=== PATIENT | male | born 1980 | race Caucasian/White ===

== ENCOUNTER 2024-05-30 09:41 | Observation (INO) ==
--- NOTE | 2024-05-03 14:34 | PAT Medication Instructions ---
Medication Instructions Date of Service May 03, 2024 Home Medications acetaminophen 650 mg tablet,extended release 650 mg PO Q8H PRN prn albuterol 90 mcg/actuation aerosol inhaler 90 mcg inhalation Q4H PRN prn gabapentin 300 mg tablet 300 mg PO TID hydrocodone 5 mg-acetaminophen 325 mg tablet 1 tab PO Q6H PRN prn meloxicam 15 mg tablet 15 mg PO QAM tizanidine 4 mg tablet 4 mg PO Q8H PRN prn MEDICATION INSTRUCTIONS: Continue as directed albuterol 90 mcg/actuation aerosol inhaler 90 mcg inhalation Q4H PRN prn (use if needed; BRING TO HOSPITAL) ASK your surgeon for instructions meloxicam 15 mg tablet 15 mg PO QAM Take morning of surgery With a small sip of water, OTHERWISE NOTHING TO EAT OR DRINK AFTER MIDNIGHT: acetaminophen 650 mg tablet,extended release 650 mg PO Q8H PRN prn tizanidine 4 mg tablet 4 mg PO Q8H PRN prn gabapentin 300 mg tablet 300 mg PO TID hydrocodone 5 mg-acetaminophen 325 mg tablet 1 tab PO Q6H PRN prn Take evening before surgery acetaminophen 650 mg tablet,extended release 650 mg PO Q8H PRN prn tizanidine 4 mg tablet 4 mg PO Q8H PRN prn gabapentin 300 mg tablet 300 mg PO TID hydrocodone 5 mg-acetaminophen 325 mg tablet 1 tab PO Q6H PRN prn Other Notes If you have any questions please call us at [phone] or [phone] or [phone] or [phone]
--- NOTE | 2024-05-16 11:50 | Anesthesiology Consultation ---
Date of Service May 16, 2024 Assessment & Plan (1) Encounter for pre-operative examination: Chart Review Chart Review: Acceptable Risk for Surgery (pending PCP clearance ) and Patient seen in Pre Admission Testing - Awaiting PCP clearance (either 05/19/24 or 05/22/24) Marzena Abraham PA-C- [facility] - please fax preop testing to PCP per patient request Per PAT appt on 05/16/24, no recent illness/disease exposures, illness related symptoms, or recent illness/disease positive tests. Will leave to surgeon's discretion if preop Covid testing needed Teaching & Discussion Pre-Anesthesia Teaching/Discussion Notes: Instructed NPO after midnight before surgery,except medications with 15 cc of water. Medication instructions p rovided according to the PAT guidelines. History Surgery Operation Date: 05/30/24 07:45 Proposed Procedures p L3-S1 Decompression and Fusion, Spinal Cord Monitoring - Nicola Oneal, Height/Weight Height: 5 ft 9 in Weight: 106 kg Allergies Allergy/AdvReac Type Severity Reaction Status Date / Time morphine Allergy Severe Hives Verified 05/03/24 08:30 vancomycin Allergy Severe Hives Verified 05/03/24 08:30 Medications Home Medications Medication Instructions Recorded Confirmed Last Taken acetaminophen 650 mg 650 mg PO Q8H PRN prn 05/03/24 05/03/24 Unknown tablet,extended release albuterol 90 mcg/actuation aerosol 90 mcg inhalation Q4H PRN prn 05/03/2408/20 Unknown inhaler gabapentin 300 mg tablet 300 mg PO TID 05/03/24 05/03/24 Unknown hydrocodone 5 mg-acetaminophen 325 1 tab PO Q6H PRN prn 05/03/24 05/03/24 Unknown mg tablet meloxicam 15 mg tablet 15 mg PO QAM 05/03/24 05/03/24 Unknown tizanidine 4 mg tablet 4 mg PO Q8H PRN prn 05/03/24 05/03/24 Unknown Past Medical History Medical History Asthma stable, inhaler use rare Family history of reaction to anesthesia father- extreme nausea and vomiting Low back pain Sleep apnea CPAP Exercise / Class Metabolic Activity II 4-5 Yardwork/Stairs/Walk up hill (one flight of stairs - no chest pain or SOB ) Past Surgical History Surgical History History of hand surgery (2009) left hand crushing injury, hardware placed and then removed Past Anesthesia History No Hx of Anesthesia Complications and No Family Hx of Anesthesia Complications (with exception to PONV ) History of PONV No Hx of PONV and Hx of Motion Sickness (mild) Social History Smoking Status: Never smoker Do You Dip or Chew Tobacco: No Smoking End Date: stopped using chewing tobacco Mar 2024 Hx Alcohol Use: No Hx Substance Use: No substance use type: does not use Review of Systems Patient denies chest pain, shortness of breath, dyspnea on exertion, reflux, cough, wheezing, palpitations. No hx of seizures, stroke, NH. No hx of blood clots or blood transfusions Physical Exam Vital Signs VITALS BP 132/89 P 66 TEMP 98.5 SP02 96% RESP 16 Constitutional no acute distress ENMT Mouth: no TMJ clicking Thyromental Distance: > or= 3.5 Finger Breadths (3.5) Mallampati Class: II Permanent bridge top front teeth Neck + limited neck extension (mild) and + facial hair (advised to shave/trim) Respiratory normal respiratory effort; no respiratory distress Auscultation: lungs clear to auscultation bilaterally; no wheezes Cardiovascular Rate/Rhythm: regular rate and regular rhythm Heart Sounds: no murmur Vessels: no carotid bruit Heart sounds diminished throughout Musculoskeletal Spine: no pain with cervical ROM Extremities: extremities normal to inspection Psychiatric Orientation: alert Lab Results Anesthesia Preop Results Results Anesthesia Widget: WBC 6.34 K/ul (4.8-10.8) 05/16/24 Hgb 16.0 g/dl (14.0-18.0) 05/16/24 Hct 45.9 % (42.0-52.0) 05/16/24 Plt 238 K/uL (130-400) 05/16/24 Na 137 mmol/L (136-145) 05/16/24 K 4.6 mmol/L (3.5-5.1) 05/16/24 Cl 103 mmol/L (98-107) 05/16/24 CO2 29 mmol/L (21-32) 05/16/24 BUN 22 mg/dl (6-23) 05/16/24 Creat 0.92 mg/dl (0.6-1.4) 05/16/24 Glucose Level 97 mg/dl (70-99(Fasting)) 05/16/24 PT 10.8 Seconds (9.0-12.0) 05/16/24 PTT 29 Seconds (21-31) 05/16/24 INR 1.0 (0.9-1.1) 05/16/24 Urine Color Yellow 05/16/24 Urine Appearance Clear (Clear) 05/16/24 Urine pH 5.5 (4.5-7.5) 05/16/24 Urine Specific [place] 1.031 (1.000-1.030) H 05/16/24 Urine Protein Negative (Negative) 05/16/24 Urine Glucose (UA) Negative (Negative) 05/16/24 Urine Ketones Trace (Negative) H 05/16/24 Urine Blood Negative (Negative) 05/16/24 Urine Nitrite Negative (Negative) 05/16/24 Urine Bilirubin Negative (Negative) 05/16/24 Urine Urobilinogen Negative (Negative) 05/16/24 Urine Leukocyte Esterase Negative (Negative) 05/16/24 Blood Type O Positive 05/16/24 Antibody Screen NEGATIVE 05/16/24 Testing Electrocardiogram Date: 05/16/24 Findings: + NSR @ (72bpm) Normal EKG per cardio Chest X-Ray Date: 05/16/24 Findings: + NAD Elevation of the right hemidiaphragm
[2024-05-30] MEDS: LACTATED RINGER'S 1,000 ML IV SCH (10:19)
[2024-05-30] MEDS: CeleBREX 200 MG CAP PO SCH (10:21)
[2024-05-30] MEDS: GABAPENTIN 900 MG DOSE PO SCH (10:21)
[2024-05-30] MEDS: ACETAMINOPHEN 500 MG TAB PO SCH (10:21)
[2024-05-30] MEDS: LR 60ML/HR IV SCH (10:24)
[2024-05-30] MEDS ORDERED: PROPOFOL IV EMULSION 10 MG/ML 20 ML VIAL IV ONE (10:47)
[2024-05-30] MEDS ORDERED: ONDANSETRON INJ 2 MG/ML 2 ML VIAL ONE (10:47)
[2024-05-30] MEDS ORDERED: GLYCOPYRROLATE 0.2 MG/ML VIAL ONE ×2 (10:47→14:12)
[2024-05-30] MEDS ORDERED: DEXAMETHASONE SOD INJ 4 MG/ML VIAL ONE (10:47)
[2024-05-30] MEDS ORDERED: LIDOCAINE 2% 2 ML VIAL/AMP(20MG/ML) INFIL ONE (10:47)
[2024-05-30] MEDS ORDERED: ROCURONIUM BROMIDE 10 MG/ML 5 ML VIAL IV ONE ×3 (10:47→13:25)
[2024-05-30] MEDS ORDERED: MIDAZOLAM HCL 1 MG/ML 2ML VIAL ONE (10:48)
[2024-05-30] MEDS ORDERED: fentaNYL citrate PF 100 MCG/2 ML VIAL ONE (10:48)
[2024-05-30] MEDS ORDERED: fentaNYL citrate PF 100 MCG/2 ML VIAL IV PRN (10:49)
[2024-05-30] MEDS ORDERED: HYDROmorphone INJ 1 MG/ML SYRINGE IV PRN ×2 (10:49→16:21)
[2024-05-30] MEDS ORDERED: ONDANSETRON INJ 2 MG/ML 2 ML VIAL IV PRN ×2 (10:49→16:21)
[2024-05-30] MEDS ORDERED: ATROPINE SULFATE 0.1 MG/ML 10ML SYR IV PRN (10:49)
[2024-05-30] MEDS ORDERED: HYDROmorphone INJ 2 MG/ML SYR/VIAL IV PRN (10:49)
[2024-05-30] MEDS ORDERED: ePHEDrine sulfate 50 MG/ML AMP IV PRN (10:49)
[2024-05-30] MEDS: SCOPOLAMINE 1 MG/72 HR TDSY PATCH TD ONE ×2 (11:05→17:06)
--- NOTE | 2024-05-30 11:30 | History & Physical Bridge Note ---
Date of Service May 30, 2024 History & Physical Bridge Note I have examined the patient, reviewed the History & Physical and in the interval since the performance of the History & Physical I have noted the following changes of clinical significance: no changes noted
--- NOTE | 2024-05-30 11:31 | History & Physical Report ---
Date of Service May 30, 2024 Assessment & Plan (1) Multilevel lumbosacral spondylosis with radiculopathy: Plan: L3-S1 decompression and fusion History of Present Illness Chief Complaint: Back and leg pain Primary Care Provider: Marzena Abraham This is a 43-year-old male presents with worsening back and bilateral leg pain after failing course of nonoperative care is here for surgical invention. Allergies Allergy/AdvReac Type Severity Reaction Status Date / Time morphine Allergy Severe Hives Verified 05/30/24 09:58 vancomycin Allergy Severe Hives Verified 05/30/24 09:58 Home Medications Medication Instructions Recorded Confirmed Type acetaminophen 650 mg 650 mg PO Q8H PRN prn 05/03/24 05/30/24 History tablet,extended release albuterol 90 mcg/actuation aerosol 90 mcg inhalation Q4H PRN prn 05/03/24 05/30/24 History inhaler gabapentin 300 mg tablet 300 mg PO TID 05/03/24 05/30/24 History hydrocodone 5 mg-acetaminophen 325 1 tab PO Q6H PRN prn 05/03/24 05/30/24 History mg tablet meloxicam 15 mg tablet 15 mg PO QAM 05/03/24 05/30/24 History tizanidine 4 mg tablet 4 mg PO Q8H PRN prn 05/03/24 05/30/24 History Past Med/Surg History Problem List (Updated 05/30/24 @ 11:30 by Nicola Oneal DO) Multilevel lumbosacral spondylosis with radiculopathy Encounter for pre-operative examination Medical History Asthma stable, inhaler use rare Family history of reaction to anesthesia father- extreme nausea and vomiting Low back pain Sleep apnea CPAP Surgical History History of hand surgery (2009) left hand crushing injury, hardware placed and then removed Social History Smoking Status: Never smoker Smoking End Date: stopped using chewing tobacco Mar 2024; Second Hand Exposure: No; Do You Dip or Chew Tobacco: No; Tobacco Cessation Education Requested by Patient: No Hx Alcohol Use: No Hx Substance Use: No Preferred Language: Sami Quartz Cutter Required: No Beliefs That Will Affect Care: None Current Living Situation: Spouse Other Information That Helps Us Care for You: No Feels Safe at Home: Yes Safety Concerns: Feels Safe At This Time Assistive Devices: CPAP, Denture - Upper and Glasses Assistive Devices Comment: permanent tooth partial Physical Exam Physical Exam: Patient is alert and oriented Heart regular rhythm Lungs clear Results & Data Results & Data Vital Signs (Past 12 Hours) Vital Signs Temp Pulse Resp BP Pulse Ox O2 Del Method 05/30/24 10:01 36.8 C 74 20 154/91 H 97 Room Air
[2024-05-30] MEDS: ceFAZolin 2000MG 2,000 MG/15 ML SYR IV SCH ×2 (11:58→20:55)
[2024-05-30] MEDS ORDERED: HYDROmorphone INJ 2 MG/ML SYR/VIAL ONE (12:23)
[2024-05-30] MEDS ORDERED: TRANEXAMIC ACID / 0.7% NACL 1000MG/100ML BAG IV ONE (12:28)
[2024-05-30] MEDS: TRANEXAMIC ACID 100 MG/ML 10 ML VIAL IV ONE (12:30)
[2024-05-30] MEDS: ceFAZolin 330 MG/ML 1 GM VIAL ONE (12:43)
[2024-05-30] MEDS: BUPIVACAINE/EPINEPHRINE 0.25% 1:200,000 30 ML VIAL ONE (12:43)
[2024-05-30] MEDS ORDERED: diphenhydrAMINE 50 MG/ML VIAL ONE (12:50)
[2024-05-30] MEDS: SURGICEL ABSORB HEMOSTAT 2IN X 14IN TOP ONE (13:17)
[2024-05-30] MEDS ORDERED: SUGAMMADEX SODIUM 200 MG/2 ML VIAL IV ONE (14:12)
--- OUTSIDE RECORDS SUMMARY | 2024-05-30 14:18 | External Medical Summary | Summary of Care ---
Author Name Unknown Organization [facility] Address [address] [place] [address] Phone [phone] Care Team Providers Care Customs And Border Protection Officer Name Role Phone Marzena Abraham PA-C Primary Care Provider [phone] Reason for Visit * Reason Onset Date Comments Films 03/15/2024 Encounter Details Date Type Department Care Team (Late st Contact Info) Description 03/15/2024 Telephone Radiology Film File [address] [place] [address] Support, Imaging Radiology [address] [place] [address] Films Allergies Active Allergy Reactions Criticality Noted Date Comments Morphine And Codeine 03/09/2006 Hives Pollen Extract 02/08/2024 Birch Vancomycin 03/09/2006 Hives documented as of this encounter (statuses as of 03/15/2024) Medications Ventolin HFA 108 (90 Base) MCG/ACT Inhalation Aerosol SolutionIndicati ons:Exacerbation of asthma, unspecified asthma severity, unspecified whether persistent Inhale by mouth 2 Puffs every 4 hours as needed for Wheezing. 18 g 3 2 Active Erythromycin 5 MG/GM Ophthalmic OintmentIndicati ons:[place] eye disease of left eye Instill into eye at bedtime . 3.5 g 2 Active Additional Information Patient not taking.Reported on 01/21/2022 tiZANidine HCl 2 MG Oral Capsule (Zanaflex) Take 1 Capsule by mouth 3 times a day as needed for Muscle spasms. 24 Capsule 4 Active oxyCODONE-Acetam inophen 5-325 MG Oral Tablet (Percocet) Take 1 Tablet by mouth at bedtime as needed for Pain, Severe. 4 Tablet 4 Active Additional Information Patient not taking.Reported on 02/08/2024 Neurontin 300 MG Oral Capsule Take by mouth. 4 Active HYDROcodone-Acet aminophen 5-325 MG Oral Tablet Take by mouth. 4 Active Ipratropium-Albu terol 0.5-2.5 (3) MG/3ML Inhalation Solution (Duoneb) Start: 01/24/24 12:52:00 PM EDT 3 Active Meloxicam 15 MG Oral Tablet (Mobic) Take by mouth. 3 Active tiZANidine HCl 4 MG Oral Capsule 4 Active documented as of this encounter (statuses as of 03/15/2024) Active Problems Problem Noted Date Diagnosed Date RITCHIE (obstructive sleep apnea) 12/05/2021 documented as of this encounter (statuses as of 03/15/2024) Immunizations Name Administration Dates Next Due COVID-19 mRNA, LNP-s, No Pre serve, 2-Dose Series (SocialShield) 03/19/2021,08/03/2020,07/12/2020 Pneumococcal Conjugate Vacci ne, 20-valent ([id number]) 01/21/2022 Seasonal Influenza, PF, 6 M & above, IM , (FluLaval or Fluzone) 01/21/2022,02/14/2021,01/17/2018 Seasonal Influenza, Trivalen t, (IIV3), PF, (Fluzone) 02/28/2024 TD - Tetanus/Diptheria (ADULT) 01/12/2004 TDAP, Age 7 and older, IM (Adacel) 12/18/2009 documented as of this encounter Social History Tobacco Use Types Packs/Day Years Used Date Smoking Tobacco: Never Smokeless Tobacco: Current Snuff Comments:approx 1 can/day- 1 Alcohol Use Standard Drinks/Week Comments Yes 0 (1 standard drink = 0.6 oz pur e alcohol) occasional PHQ-2 Answer Date Recorded PHQ-2 Score 0 01/30/2018 Sex and Gender Information Value Date Recorded Sex Assigned at Not on file Legal Sex Male 5:44 AM EST Gender Identity Not on file Sexual Orientation Not on file documented as of this encounter Miscellaneous Notes * Telephone Encounter - Alysia Golden OSA - 03/15/2024 3:31 PM EST 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 [place] Authorization to Release on file. Images pushed to [facility] Life Image account. documented in this encounter Plan of Treatment Upcoming Encounters Date Type Department Care Team (Late st Contact Info) Description 03/30/2024 7:30 AM EST Office Visit [facility] [address] [place] [address] Adam Kirby CRNP [address] [place] [address] Health Maintenance Due Date Last Done Comments HIV Screening 06/07/1995 Hepatitis C Screening 1998 Hepatitis B Vaccine (1 of 3 - 19+ 3-dose series) 06/07/1999 Depression Screening 07/30/2018 07/30/2017 DTap/Tdap Vaccines (2 - Td or Tdap) 12/19/2019 12/18/2009, 01/12/2004 COVID-19 Vaccine ( season) 2023 03/19/2021, 08/03/2020, 07/12/2020 Diabetes Screening 05/23/2025 05/23/2022, 0 04/20/2018, 12/26/1997 Lipid Panel 05/23/2027 05/23/2022, 03/30, 06/18/2017, Additional history exists Pneumococcal Vaccine: Pediatrics (0 to 5 Years) and At-Risk Patients (6 to 64 Years) Aged Out 01/21/2022 No longer eligible based on patient's age to complete this topic Influenza Vaccine (FLU shot) Completed 04/2023, 01/21/2022, 02/14/2021, Additional history exists HPV (Gardasil) Vaccine Aged Out No lo nger eligible based on patient's age to complete this topic MENINGOCOCCAL (MENACTRA/MENVEO) Aged Out No longer eligible based on patient's age to complete this topic documented as of this encounter Medical Devices Not on filedocumented as of this encounter Care Teams Customs And Border Protection Officer Relationship Specialty Start Date End Date Marzena Abraham PA-C [address] [facility] [place] [id number] PCP - General Physician Curing Oven Tender 02/28/24 documented as of this encounter
--- OUTSIDE RECORDS SUMMARY | 2024-05-30 14:18 | External Medical Summary | Continuity of Care Document ---
Author Name Unknown Organization [place] Address [address] [facility], [place] [address] Phone [phone] Problems Active Problems Provider Date Obstructive sleep apnea syndrome Ezekiel Cruz Onset: 01/26/2022 Mild intermittent asthma Deonna Webster PA-C On set: 03/05/2022 Lumbar radiculopathy Marzena Abraham PA-C Onset: 1 Note: Document: 01/24/24 - N eurosurgery Consultation Social History Type Date Description Comments Sex Unknown Tobacco Use Reviewed: 05/19/24 Never Smoked Cigarette s Tobacco Use Reviewed: 05/19/24 Never Smoked Cigars Tobacco Use Reviewed: 05/19/24 Never Smoked A Pipe Smoking Status Reviewed: 05/19/24 Never Smoked A Pipe Smokeless Tobacco 05/19/2024 Quit - Age 43 Smokeless Tobacco 05/19/2024 Former Smokele ss Tobacco User, Used 3 Times Daily ETOH Use Occasionally consumes alcoho l Tobacco Use Start: Unknown Patient has never smoked Allergies and adverse reactions Active Allergies Criticality Reaction | Severity Comments Date Morphine Unable to assess criticality Hives 01/26/2022 Vancomycin Unable to assess criticality Hives 01/26/2022 Medications Active Medications SIG Qnty Indications Order ing Provider Date Hydrocodone Bitartrate/Acetaminop hen5-325mg Tablets 1 by mouth every 4-6 hours as needed pain-initial treatment 18tabs M51.16 Baldemar Oh, 12/28/2023 Tizanidine HCL4mg Capsules 1 by mouth every 8 hours as needed 90caps Baldemar Oh, 12/23/2023 [id number] Capsules 1 by mouth three times a day 270caps Baldemar Oh, DO 12/23/2023 Wgeyhrmuy48zw Tablets 1 by mouth every day 90tabs M54.50 Baldemar Oh, DO 12/08/2023 NebulizerMisc with supplies - use as directed; dx j45.901 1units J45.901 CICI Santiago 11/04/2022 Ipratropium [place]/Albuterol Sulfate0.5-2.5(3)mg/3 ML Solution nebulize 1 unit every 6 hours as needed for wheezing. 90ml J45.901 Baldemar Oh, 11/04/2022 Ventolin NTU935(90Base) mcg/Act Aerosol 2 puffs by mouth every 4 hours as needed wheezing 1gm CICI Santiago History Medications Ogquqmwta12ub Tablets 1 by mouth every day for 14 days 14tabs M54.50 Oralia Obrien MD 12/08/2023 - 12/10/2023 Medications Administered in Office Medication SIG Qnty Indications Ordering Provider Date Injection Ketorolac Trometha mine Per 15 mg/.5cc (Toradol)Injection Marzena Abraham PA-C 12/10/2023 Inj, methylpred acetate 1 mgInjection Marzena Abraham PA-C Injection Methylprednisolone Acetate 20 MGInjection Marzena Abraham PA-C 05/27/2023 Immunizations CPT Code Status Date Vaccine Lot # [id number] Given 03/05/2022 Tdap (Tetanus, diphtheria & acel. pertussis) Adacel or Boostrix [id number] U-FLU Given 01/21/2022 Influenza,Unspecified 81186 Given 01/21/2022 Pneumococcal Conjugate-Pr evnar 20 [id number] 09843 Given 03/19/2021 Pfizer Sars-Cov -2 (Cov-19) vacc 30mcg/0.3ML 12Y+ EMR Doc Only U-FLU Given 02/14/2021 Influenza,Unspecified 68834 Given 08/03/2020 Pfizer Sars-Cov -2 (Cov-19) vacc 30mcg/0.3ML 12Y+ EMR Doc Only 33060 Given 07/12/2020 Pfizer Sars-Cov -2 (Cov-19) vacc 30mcg/0.3ML 12Y+ EMR Doc Only U-FLU Given 01/17/2018 Influenza,Unspecified 79371 Given 12/18/2009 Tdap (Tetanus, diphtheria & acel. pertussis) Adacel or Boostrix 09352 Given 01/12/2004 [facility] [address] Refused 03/05/2022 Moderna Sars-Co v-2 (Covid-19) Vaccine, BiValent Booster 12y+ Vital Signs Date Vital Result Comment 05/19/2024 8:37am BP Systolic 130 mmHg BP Diastolic 88 mmHg Body Temperature 98.1 F Heart Rate 68 /min Respiratory Rate 18 /min Weight 235.00 lb Weight 106.596 kg 12/28/2023 8:28am BP Systolic 118 mmHg BP Diastolic 88 mmHg Body Temperature 97.5 F Heart Rate 72 /min Respiratory Rate 20 /min Weight 218.00 lb Weight 98.885 kg Height 67.5 inches 5'7.50" BMI (Body Mass Index) 33.6 kg/m2 [place] Body Weight 148 lb Results Test Acquired Date Facility Test Result H/L Range Note Drug Monitor, Panel 1 W/Conf Urine 12/28/2023 [facility] [place] [address] Amphetamines NEGATIVE ng/mL Normal <500 medMATCH Amphetamines DNR Normal Amphetamine DNR ng/mL Normal <250 medMATCH Amphetamine DNR Normal Methamphetamine DNR ng/mL Normal <250 medMATCH Methamphetamine DNR Normal Amphetamines Comments DNR Normal Barbiturates NEGATIVE ng/mL Normal <300 medMATCH Barbiturates DNR Normal Amobarbital DNR ng/mL Normal <100 medMATCH Amobarbital DNR Normal Butalbital DNR ng/mL Normal <100 medMATCH Butalbital DNR Normal Pentobarbital DNR ng/mL Normal <100 medMATCH Pentobarbital DNR Normal Phenobarbital DNR ng/mL Normal <100 medMATCH Phenobarbital DNR Normal Secobarbital DNR ng/mL Normal <100 medMATCH Secobarbital DNR Normal Barbiturates Comments DNR Normal Benzodiazepines NEGATIVE ng/mL Normal <100 medMATCH Benzodiazepines DNR Normal Alphahydroxyalprazolam DNR ng/mL Normal <25 medMATCH aOH alprazolam DNR Normal Alphahydroxymidazolam DNR ng/mL Normal <50 medMATCH aOH midazolam DNR Normal Alphahydroxytriazolam DNR ng/mL Normal <50 medMATCH aOH triazolam DNR Normal Aminoclonazepam DNR ng/mL Normal <25 medMATCH Aminoclonazepam DNR Normal Hydroxyethylflurazepam DNR ng/mL Normal <50 medMATCH Oh,Et flurazepam DNR Normal Lorazepam DNR ng/mL Normal <50 medMATCH Lorazepam DNR Normal Nordiazepam DNR ng/mL Normal <50 medMATCH Nordiazepam DNR Normal Oxazepam DNR ng/mL Normal <50 medMATCH Oxazepam DNR Normal Temazepam DNR ng/mL Normal <50 medMATCH Temazepam DNR Normal Benzodiazepines Comments DNR Normal Cocaine Metabolite NEGATI VE ng/mL Normal <150 medMATCH Cocaine Metab DNR Normal Benzoylecgonine DNR ng/mL Normal <100 medMATCH Benzoylecgonine DNR Normal Cocaine Comments DNR Normal Marijuana Metabolite NEGA TIVE ng/mL Normal <20 medMATCH Marijuana Metab DNR Normal Marijuana Metabolite DNR ng/mL Normal < 5 medMATCH Marijuana Metab DNR Normal Marijuana Comments DNR Normal Methadone Metabolite NEGA TIVE ng/mL Normal <100 medMATCH Methadone Metab DNR Normal Eddp DNR ng/mL Normal <100 medMATCH Eddp DNR Normal Methadone DNR ng/mL Normal <100 medMATCH Methadone DNR Normal Methadone Comments DNR Normal Opiates NEGATIVE ng/mL Normal <100 medMATCH Opiates DNR Normal Codeine DNR ng/mL Normal <50 medMATCH Codeine DNR Normal Hydrocodone DNR ng/mL Normal <50 medMATCH Hydrocodone DNR Normal Hydromorphone DNR ng/mL Normal <50 medMATCH Hydromorphone DNR Normal Morphine DNR ng/mL Normal <50 medMATCH Morphine DNR Normal Norhydrocodone DNR ng/mL Normal <50 medMATCH Norhydrocodone DNR Normal Opiates Comments DNR Normal Oxycodone NEGATIVE ng/mL Normal <100 medMATCH Oxycodone DNR Normal Noroxycodone DNR ng/mL Normal <50 medMATCH Noroxycodone DNR Normal Oxycodone DNR ng/mL Normal <50 medMATCH Oxycodone DNR Normal Oxymorphone DNR ng/mL Normal <50 medMATCH Oxymorphone DNR Normal Oxycodone Comments DNR Normal Phencyclidine NEGATIVE ng/mL Normal <25 medMATCH Phencyclidine DNR Normal Phencyclidine DNR ng/mL Normal <25 medMATCH Phencyclidine DNR Normal Phencyclidine Comments DNR Normal Creatinine 74.1 mg/dL Normal > or = 20.0 Specific [place] DNR Normal > or = 1.003 pH 5.2 Normal 4.5-9.0 Oxidant NEGATIVE g /mL Normal <200 Abnormal Specim en Validity Test: DNR Normal Prescribed Drugs, Medmatch(R) 12/28/[address] [facility] [place] [address] [phone] medMATCH Summary (SEE NOTE) 1 Prescribed Drug 1 DNR Normal Prescribed Drug 2 DNR Normal Prescribed Drug 3 DNR Normal Prescribed Drug 4 DNR Normal Prescribed Drug 5 DNR Normal Prescribed Drug 6 DNR Normal Prescribed Drug 7 DNR Normal Prescribed Drug 8 DNR Normal Prescribed Drug 9 DNR Normal Prescribed Drug 10 DNR Normal Drug Monitoring Template 12/28/[address] [facility] [address] [place] [address] Notes and Comments (SEE NOTE) 2 Patient Histori job Report DNR Normal Laboratory test finding 12/28/[address] [facility] [place] [address] [phone] Enhanced PDF Report [id number] SEE IMAGE 1 Summary not applicab le 2 This drug testing is for medical treatment only. Analysis was performed as non-forensic testing and these results should be used only by healthcare providers to render diagnosis or treatment, or to monitor progress of medical conditions. medMATCH(R) enables providers to identify if drug use is consistent or inconsistent with a corresponding prescribed medication(s) list. Healthcare Providers needing Interpretation assistance, please contact us at [phone] ( ) M-F, 8am to 10pm EST Procedures Date Code Description Status 02/08/2024 97193 Manual Sea Air Land Officer 1/> Area 15 Min Each Region Completed 02/08/2024 84881 Therapy Proc, Neuromuscular Reeducation Of Movement Completed 02/08/2024 06464 Therapy Proc 1/> Area 15Min Ea Completed 02/03/2024 17246 Manual Sea Air Land Officer 1/> Area 15 Min Each Region Completed 02/03/2024 25959 Therapy Proc 1/> Area 15Min Ea Completed 02/03/2024 98231 Electrical Stimulation Unatt ended Completed 02/03/2024 65590 Hot/Cold Pack Completed 02/01/2024 20621 Re-Eval Of PT Es tablished Plan Of Care 20Mins Face To Face PT/Fam Completed 02/01/2024 25918 Therapy Proc 1/> Area 15Min Ea Completed 12/23/2023 65145 Physical Therapy Evaluation Low Complexity Completed 12/23/2023 40243 Therapy Proc 1/> Area 15Min Ea Completed 12/10/2023 J1885 Injection Ketorolac Trometha mine Per 15 mg/.5cc (Toradol) Completed 12/10/2023 J1010 Inj, methylpred acetate 1 mg Completed 12/10/2023 90070 Inj Subcutaneous Or Intramus cular Completed Medical Devices Description No Information Available Encounters Type Date Location Provider Dx Diagnosis Office Visit 05/19/2024 8:30a Hiro Abraham PA-C M54.16 Radiculopathy , lumbar region Z01.818 Encounter for other preprocedural examination Office Visit 12/28/2023 8:30a Hiro Fair PA-C M51.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, lumbar region Office Visit 12/10/2023 1:30p Hiro Fair PA-C M51.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, lumbar region Office Visit 12/08/2023 1:00p Hiro john MD M54.50 Low back pain, unspecified Assessments Date Code Description Provider 05/19/2024 M54.16 Radiculopathy, lumbar region Marzena Abraham PA-C 05/19/2024 Z01.818 Encounter for other preproce dural examination Marzena Abraham PA-C 02/08/2024 M54.16 Radiculopathy, lumbar region Oren Pinedosen, DPT 02/08/2024 M54.50 Low back pain, unspecified E van Mara PinedoYuri, DPT 02/08/2024 M79.605 Pain in left leg Oren Pinedos en, DPT 02/08/2024 M79.604 Pain in right leg Oren Pinedo sen, DPT 02/03/2024 M54.16 Radiculopathy, lumbar region Oren Pinedosen, DPT 02/03/2024 M54.50 Low back pain, unspecified E van Mara PinedoYuri, DPT 02/03/2024 M79.605 Pain in left leg Oren Pinedos en, DPT 02/03/2024 M79.604 Pain in right leg Oren Pinedo sen, DPT 02/01/2024 M54.16 Radiculopathy, lumbar region Oren Pinedosen, DPT 02/01/2024 M54.50 Low back pain, unspecified E van Mara PinedoYuri, DPT 02/01/2024 M79.605 Pain in left leg Oren Pinedos en, DPT 02/01/2024 M79.604 Pain in right leg Oren Pinedo sen, DPT 12/28/2023 M51.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 d isc disorders with radiculopathy, lumbar region Marzena Abraham PA-C 12/23/2023 M54.16 Radiculopathy, lumbar region Oren Pinedosen, DPT 12/23/2023 M54.50 Low back pain, unspecified E van Mara Yuri, DPT 12/23/2023 M79.605 Pain in left leg Oren Pinedos en, DPT 12/23/2023 M79.604 Pain in right leg Oren Pinedo sen, DPT 12/10/2023 M51.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 d isc disorders with radiculopathy, lumbar region Marzena Abraham PA-C 12/08/2023 M54.50 Low back pain, unspecified M ramón Young MD Plan of Treatment 05/19/2024 - Marzena Abraham PA-C* M54.16 Radiculopathy, lumbar region * Z01.818 Encounter for other preprocedural examination* Comments:* Patient cleared for proposed surgical procedure. * All* Follow up:* Do not take meloxicam 1 week prior to surgery as discussed Functional Status Description No Information Available Mental Status Description No Information Available Referrals Refer to Dr Reason for Referral Status Appt Ethan Foster [facility]/Neurosurgery He has areas with moderate to severe narrowing around the spinal canal. I would suggest if he is having pain that he see neurosurgery as next step. Closed 01/24/2024 DR. Jack Antonio [address] [place] [address] [phone]
--- OUTSIDE RECORDS SUMMARY | 2024-05-30 14:18 | External Medical Summary | Continuity of Care Document ---
Author Name Unknown Organization [place] Address [address] [facility], [place] [address] Phone [phone] Problems Active Problems Provider Date Obstructive sleep [...] hours as needed 90caps Baldemar Oh, 12/23/2023 Yhuyahtky536ic Capsules 1 by mouth three times a day 270caps Baldemar Oh, DO 12/23/2023 Iigsozgeo04ce Tablets 1 by mouth every day 90tabs M54.50 Baldemar Oh, DO 12/08/2023 NebulizerMisc with supplies - use as directed; dx j45.901 1units J45.901 CICI Santiago 11/04/2022 Ipratropium [place]/Albuterol Sulfate0.5-2.5(3)mg/3 ML Solution nebulize 1 unit every 6 hours as needed for wheezing. 90ml J45.901 Baldemar Oh, 11/04/2022 Ventolin UON023(90Base) mcg/Act Aerosol 2 puffs by mouth every 4 hours as needed wheezing 1gm CICI Santiago History Medications Idntszzax58tn Tablets 1 by mouth every day for [...] CPT Code Status Date Vaccine Lot # [id number] Given 03/05/2022 Tdap (Tetanus, diphtheria & acel. pertussis) Adacel or Boostrix [id number] U-FLU Given 01/21/2022 Influenza,Unspecified 08689 Given 01/21/2022 Pneumococcal Conjugate-Pr evnar 20 [id number] 78417 Given 03/19/2021 Pfizer Sars-Cov -2 (Cov-19) vacc 30mcg/0.3ML 12Y+ EMR Doc Only U-FLU Given 02/14/2021 Influenza,Unspecified 48594 Given 08/03/2020 Pfizer Sars-Cov -2 (Cov-19) vacc 30mcg/0.3ML 12Y+ EMR Doc Only 02333 Given 07/12/2020 Pfizer Sars-Cov -2 (Cov-19) vacc 30mcg/0.3ML 12Y+ EMR Doc Only U-FLU Given 01/17/2018 Influenza,Unspecified 75842 Given 12/18/2009 Tdap (Tetanus, diphtheria & acel. pertussis) Adacel or Boostrix 97697 Given 01/12/2004 [facility]ria[facility] [address] Refused 03/05/2022 Moderna Sars-Co v-2 (Covid-19) Vaccine, [...] 5'7.50" BMI (Body Mass Index) 33.6 kg/m2 [place] Body Weight 148 lb Results Test Acquired Date Facility Test Result H/L Range Note Drug Monitor, Panel 1 W/Conf Urine 12/28/2023 [facility] [place] [address] Amphetamines NEGATIVE ng/mL Normal <500 medMATCH Amphetamines [...] mg/dL Normal > or = 20.0 Specific [place] DNR Normal > or = 1.003 pH 5.2 Normal 4.5-9.0 Oxidant NEGATIVE g /mL Normal <200 Abnormal Specim en Validity Test: DNR Normal Prescribed Drugs, Medmatch(R) 12/28/2023 [facility] [facility] [place] [address] medMATCH Summary (SEE NOTE) 1 Prescribed Drug 1 DNR Normal Prescribed Drug 2 DNR Normal Prescribed Drug 3 DNR Normal Prescribed Drug 4 DNR Normal Prescribed Drug 5 DNR Normal Prescribed Drug 6 DNR Normal Prescribed Drug 7 DNR Normal Prescribed Drug 8 DNR Normal Prescribed Drug 9 DNR Normal Prescribed Drug 10 DNR Normal Drug Monitoring Template 12/28/[address] [facility] [address] [place] [address] Notes and Comments (SEE NOTE) 2 Patient Histori job Report DNR Normal Laboratory test finding 12/28/[address] [facility] [place] [address] Enhanced PDF Report [id number] SEE IMAGE 1 Summary not applicab le [...] needing Interpretation assistance, please contact us at [phone] ( ) M-F, 8am to 10pm EST Procedures Date Code Description Status 02/08/2024 32380 Manual Glass Forming Engineer 1/> Area 15 Min Each Region Completed 02/08/2024 03767 Therapy Proc, Neuromuscular Reeducation Of Movement Completed 02/08/2024 73171 Therapy Proc 1/> Area 15Min Ea Completed 02/03/2024 36331 Manual Glass Forming Engineer 1/> Area 15 Min Each Region Completed 02/03/2024 55224 Therapy Proc 1/> Area 15Min Ea Completed 02/03/2024 58710 Electrical Stimulation Unatt ended Completed 02/03/2024 69203 Hot/Cold Pack Completed 02/01/2024 73852 Re-Eval Of PT Es tablished Plan Of Care 20Mins Face To Face PT/Fam Completed 02/01/2024 20580 Therapy Proc 1/> Area 15Min Ea Completed 12/23/2023 41431 Physical Therapy Evaluation Low Complexity Completed 12/23/2023 35922 Therapy Proc 1/> Area 15Min Ea Completed 12/10/2023 J1885 Injection Ketorolac Trometha mine Per 15 mg/.5cc (Toradol) Completed 12/10/2023 J1010 Inj, methylpred acetate 1 mg Completed 12/10/2023 15601 Inj Subcutaneous Or Intramus cular Completed Medical [...] Young MD Plan of Treatment 05/19/2024 - Mrazena Abraham PA-C* M54.16 Radiculopathy, lumbar region * Z01.818 Encounter for other preprocedural examination* Comments:* Patient cleared for proposed surgical procedure. * All* Follow up:* Do not take meloxicam 1 week prior to surgery as discussed Functional Status Description No Information Available Mental Status Description No Information Available Referrals Refer to Dr Reason for Referral Status Appt Ethan Foster [facility]/Neurosurgery He has areas with moderate to severe narrowing around the spinal canal. I would suggest if he is having pain that he see neurosurgery as next step. Closed 01/24/2024 DR. Jack Antonio [address] [place] [address] [phone]
--- OUTSIDE RECORDS SUMMARY | 2024-05-30 14:18 | External Medical Summary | Continuity of Care Document ---
Author Name Unknown Organization [place] Address [address] [facility], [place] [address] Phone [phone] Problems Active Problems Provider Date Obstructive sleep [...] hours as needed 90caps Baldemar Oh, 12/23/2023 Vcgsmgzfo404em Capsules 1 by mouth three times a day 270caps Baldemar Oh, DO 12/23/2023 Qolojyenr28fx Tablets 1 by mouth every day 90tabs M54.50 Baldemar Oh, DO 12/08/2023 NebulizerMisc with supplies - use as directed; dx j45.901 1units J45.901 CICI Santiago 11/04/2022 Ipratropium [place]/Albuterol Sulfate0.5-2.5(3)mg/3 ML Solution nebulize 1 unit every 6 hours as needed for wheezing. 90ml J45.901 Baldemar Oh, 11/04/2022 Ventolin SEU288(90Base) mcg/Act Aerosol 2 puffs by mouth every 4 hours as needed wheezing 1gm CICI Santiago History Medications Nuwnkqzcj76ky Tablets 1 by mouth every day for [...] CPT Code Status Date Vaccine Lot # [id number] Given 03/05/2022 Tdap (Tetanus, diphtheria & acel. pertussis) Adacel or Boostrix [id number] U-FLU Given 01/21/2022 Influenza,Unspecified 55003 Given 01/21/2022 Pneumococcal Conjugate-Pr evnar 20 [id number] 19267 Given 03/19/2021 Pfizer Sars-Cov -2 (Cov-19) vacc 30mcg/0.3ML 12Y+ EMR Doc Only U-FLU Given 02/14/2021 Influenza,Unspecified 44946 Given 08/03/2020 Pfizer Sars-Cov -2 (Cov-19) vacc 30mcg/0.3ML 12Y+ EMR Doc Only 33208 Given 07/12/2020 Pfizer Sars-Cov -2 (Cov-19) vacc 30mcg/0.3ML 12Y+ EMR Doc Only U-FLU Given 01/17/2018 Influenza,Unspecified 24331 Given 12/18/2009 Tdap (Tetanus, diphtheria & acel. pertussis) Adacel or Boostrix 71374 Given 01/12/2004 T[facility] ([facility] & Diphtheria) [facility] [address] Refused 03/05/2022 Moderna Sars-Co v-2 (Covid-19) Vaccine, [...] 5'7.50" BMI (Body Mass Index) 33.6 kg/m2 [place] Body Weight 148 lb Results Test Acquired Date Facility Test Result H/L Range Note Drug Monitor, Panel 1 W/Conf Urine 12/28/2023 [facility] [place] [address] [phone] Amphetamines NEGATIVE ng/mL Normal <500 medMATCH Amphetamines [...] mg/dL Normal > or = 20.0 Specific [place] DNR Normal > or = 1.003 pH 5.2 Normal 4.5-9.0 Oxidant NEGATIVE g /mL Normal <200 Abnormal Specim en Validity Test: DNR Normal Prescribed Drugs, Medmatch(R) 12/28/[address] [facility] [place] [address] medMATCH Summary (SEE NOTE) 1 Prescribed Drug 1 DNR Normal Prescribed Drug 2 DNR Normal Prescribed Drug 3 DNR Normal Prescribed Drug 4 DNR Normal Prescribed Drug 5 DNR Normal Prescribed Drug 6 DNR Normal Prescribed Drug 7 DNR Normal Prescribed Drug 8 DNR Normal Prescribed Drug 9 DNR Normal Prescribed Drug 10 DNR Normal Drug Monitoring Template 12/28/2023 [employer] [address] [place] [address] Notes and Comments (SEE NOTE) 2 Patient Histori job Report DNR Normal Laboratory test finding 12/28/[address] [facility] [place] [address] Enhanced PDF Report [id number] SEE IMAGE 1 Summary not applicab le [...] needing Interpretation assistance, please contact us at [phone] ( ) M-F, 8am to 10pm EST Procedures Date Code Description Status 02/08/2024 86315 Manual Magisterial District Judge 1/> Area 15 Min Each Region Completed 02/08/2024 71209 Therapy Proc, Neuromuscular Reeducation Of Movement Completed 02/08/2024 06709 Therapy Proc 1/> Area 15Min Ea Completed 02/03/2024 54753 Manual Magisterial District Judge 1/> Area 15 Min Each Region Completed 02/03/2024 77773 Therapy Proc 1/> Area 15Min Ea Completed 02/03/2024 06463 Electrical Stimulation Unatt ended Completed 02/03/2024 67272 Hot/Cold Pack Completed 02/01/2024 77870 Re-Eval Of PT Es tablished Plan Of Care 20Mins Face To Face PT/Fam Completed 02/01/2024 66783 Therapy Proc 1/> Area 15Min Ea Completed 12/23/2023 45600 Physical Therapy Evaluation Low Complexity Completed 12/23/2023 94269 Therapy Proc 1/> Area 15Min Ea Completed 12/10/2023 J1885 Injection Ketorolac Trometha mine Per 15 mg/.5cc (Toradol) Completed 12/10/2023 J1010 Inj, methylpred acetate 1 mg Completed 12/10/2023 26413 Inj Subcutaneous Or Intramus cular Completed Medical [...] Reason for Referral Status Appt Ethan Foster [facility]/Neurosurgery He has areas with moderate to severe narrowing around the spinal canal. I would suggest if he is having pain that he see neurosurgery as next step. Closed 01/24/2024 DR. Jack Antonio [address] [place] [phone]
--- OUTSIDE RECORDS SUMMARY | 2024-05-30 14:18 | External Medical Summary | Summary of Care ---
Author Name Unknown Organization [facility] Address [address] [place] [address] Phone [phone] Care Team Providers Care Regional Marketing Director Name Role Phone Marzena Abraham PA-C Primary Care Provider [phone] Reason for Visit * Auth/Cert Specialty Diagnoses / Procedures Referred By Tao bruner Referred To Contact Diagnoses Lumbar radicular pain Lumbar radicular pain [M54.16] Procedures INJECT DX/THER SUBSTANCE INTERLAMINAR LUMBAR/SACRAL W IMAGE GUIDE INJECTION SPINE LUMBAR OR SACRAL Juan Pablo Portillo DO [address] [facility] [place] [address] Phone: tel: fax: [facility] [address] [place] [phone] Phone: tel: fax: Referral ID Status Reason Start Date Expiration Date Visits Re quested Visits Authorized [id number] Encounter Details Date Type Department Care Team (Latest Contact Info) Description 02/28/2024 1:13 PM EST - 02/28/2024 2:01 PM EST Hospital Encounter [facility] [address] [place] [phone] Juan Pablo Portillo DO [address] [facility] [place] [address] Discharge Disposition: Home - Self Care Allergies Active Allergy Reactions Criticality Noted Date Comments Morphine And Codeine 03/09/2006 Hives Pollen Extract 02/08/2024 Birch Vancomycin 03/09/2006 Hives documented as of this encounter (statuses as of 02/29/2024) Medications Ventolin HFA 108 (90 Base) MCG/ACT Inhalation Aerosol SolutionIndicati ons:Exacerbation of asthma, unspecified asthma severity, unspecified whether persistent Inhale by mouth 2 Puffs every 4 hours as needed for Wheezing. 18 g 3 2 Active Erythromycin 5 MG/GM Ophthalmic OintmentIndicati ons:[place] eye disease of left eye Instill into [...] as of this encounter (statuses as of 02/29/2024) Active Problems Problem Noted Date Diagnosed Date RITCHIE (obstructive sleep apnea) 12/05/2021 documented as of this encounter (statuses as of 02/29/2024) Immunizations Name Administration Dates Next Due COVID-19 mRNA, LNP-s, No Pre serve, 2-Dose Series (Pfizer) 03/19/2021,08/03/2020,07/12/2020 Pneumococcal Conjugate Vacci ne, 20-valent ([id number]) 01/21/2022 Seasonal Influenza, PF, 6 M & [...] on file documented as of this encounter Last Filed Vital Signs Vital Sign Reading Time Taken Comments Blood Pressure 131/91 02/28/2024 1:47 PM EST Pulse 73 02/28/2024 1:47 PM EST Temperature 36 C (96.8 F) 02/28/2024 1:47 PM EST Respiratory Rate 18 02/28/2024 1:47 PM EST Oxygen Saturation 96% 02/28/2024 1:47 PM EST Inhaled Oxygen Concentration - - Weight - - Height - - Body Mass Index - - documented in this encounter Discharge Instructions * Discharge Instr - AVS* Juan Pablo Portillo, DO - 02/28/2024 1:36 PM EST Discharge Date: 02/28/2024 Check your Patient Education Brochure for further information. If you have any further questions call your physician at [phone]. The information below provides you with the instructions and the list of medications you need to betaking following discharge from the hospital. If you have any questions, please ask before leaving.If you have questions after you leave, you can reach us at the number above. You had the following procedure performed: Epidural Steroid Injection Wound Care: You may shower normally, but be sure to keep the injection site clean and dry. No soaking in a bathfor 48 hours. Activity: You may resume your regular diet as tolerated. Return to normal activities slowly as tolerated. Walking is very important for healing and your rehabilitation. Initially, you should walk at least two to three times daily. Then slowly and gradually increase your distance as your tolerance for physical activity increases. You may go up and down stairs carefully. You may resume home medications. If you received sedation, for the next 24 hours, you should NOT: Drive a vehicle, operate power machinery or power equipment Drink alcoholic beverages, including beer Make important decisions, such as signing contracts, etc. Notify physician for: Temperature greater than 101 degrees F. Increased pain. Calf swelling or tenderness. Drainage or redness of the incision. Chest pain or shortness of breath (and go to the Emergency Department) Date you may return to work or school: tomorrow documented in this encounter H&P Notes * Juan Pablo Portillo DO - 02/28/2024 1:35 PM EST Eamon Rios : 1980 Today's date: 02/28/24 HPI: Eamon Rios is a 43 year old male who complains of low back pain bilaterally, leg pain bilaterally, and buttock pain bilaterally. 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 He describes his pain as sharp, gnawing, and hot and burning. Patient reports that his pain is 4/10 can reach 7/10 depending on activity. This pain is constant. Pain is increased by most activity. He reports that his pain is decreased by resting/lying down and sitting. His pain is associated with numbness and tingling in bilateral lower extremities. Patient denies bowel/bladder dysfunction Has completed 4 sessions of PT thus far with minimal results thus far. Was evaluated by ortho spine who recommends epidural steroid injection prior to any consideration of surgical intervention. PAST MEDICAL HISTORY: Past Medical History: Diagnosis Date Asthma COVID-19 02/15/2020 History of fracture 03/29/1998 6 rib fx History of fracture 12/18/2009 left thumb History of pneumonia 11/2002; 03/2011 LLL Past Medical History - Pertinent Findings: (-) clotting disorder, (-) anesthetic problem, (-) intubation problem PAST SURGICAL HISTORY: Past Surgical History: Procedure Laterality Date INFORMATION orchiopexy FAMILY HISTORY: Family History Problem Relation Name Age of Onset Asthma Father No Past Hx Mother Family History - Pertinent Findings: (-) clotting disorder, (-) anesthetic problem, and (-) intubation problem SOCIAL HISTORY: Social History Tobacco Use Smoking status: Never Smokeless tobacco: Current Types: Snuff Tobacco comments: approx 1 can/day- 01/02/20 Vaping Use Vaping status: Never Used Substance Use Topics Alcohol use: Yes Comment: occasional Drug use: No CURRENT MEDICATIONS: Note that discontinued and completed medications (per the MAR) continue to display for 24 hours. Ordered medications to be given in the future also display. Current Outpatient Medications Medication Sig Dispense Refill Ventolin HFA 108 (90 Base) MCG/ACT Inhalation Aerosol Solution Inhale by mouth 2 Puffs every 4 hours as needed for Wheezing. 18 g 3 Neurontin 300 MG Oral Capsule Take by mouth. HYDROcodone-Acetaminophen 5-325 MG Oral Tablet Take by mouth. Ipratropium-Albuterol 0.5-2.5 (3) MG/3ML Inhalation Solution (Duoneb) Start: 01/24/24 12:52:00 PM EDT Meloxicam 15 MG Oral Tablet (Mobic) Take by mouth. tiZANidine HCl 4 MG Oral Capsule Erythromycin 5 MG/GM Ophthalmic Ointment Instill into eye at bedtime . (Patient not taking: Reported on 01/21/2022 ) 3.5 g 0 tiZANidine HCl 2 MG Oral Capsule (Zanaflex) Take 1 Capsule by mouth 3 times a day as needed for Muscle spasms. (Patient not taking: Reported on 02/08/2024) 24 Capsule 0 oxyCODONE-Acetaminophen 5-325 MG Oral Tablet (Percocet) Take 1 Tablet by mouth at bedtime as neededfor Pain, Severe. (Patient not taking: Reported on 02/08/2024) 4 Tablet 0 No current facility-administered medications for this visit. ALLERGIES: Morphine [morphine and codeine], Pollen extract-tree extract [pollen extract], and Vancomycin Review of Systems Constitutional: Negative. Negative for chills, fatigue and fever. Respiratory: Negative. Negative for cough, shortness of breath and wheezing. Cardiovascular: Negative. Negative for palpitations and leg swelling. Gastrointestinal: Negative. Endocrine: Negative. Negative for polydipsia and polyuria. Genitourinary: Negative. Musculoskeletal: Positive for arthralgias, back pain, gait problem and myalgias. Negative for jointswelling. Skin: Negative. Negative for color change, rash and wound. Allergic/Immunologic: Negative. Negative for immunocompromised state. Neurological: Positive for numbness. Negative for weakness. Hematological: Does not bruise/bleed easily. Psychiatric/Behavioral: Positive for sleep disturbance. Negative for dysphoric mood. Most Recent Vital Signs: Filed Vitals: 02/08/24 1318 BP: 144/82 Pulse: 89 Temp: 36.4 C (97.5 F) TempSrc: Temporal Artery SpO2: 99% Physical Exam Constitutional: General: He is awake. Appearance: Normal appearance. He is well-developed. He is obese. Cardiovascular: Rate and Rhythm: Normal rate and regular rhythm. Heart sounds: No murmur heard. Pulmonary: Effort: Pulmonary effort is normal. Breath sounds: Normal breath sounds. Musculoskeletal: Lumbar back: Tenderness and bony tenderness present. Decreased range of motion. Positive right straight leg raise test and positive left straight leg raise test. Comments: + Facet loading SI testing deferred Skin: General: Skin is warm and dry. Capillary Refill: Capillary refill takes less than 2 seconds. Coloration: Skin is not mottled. Findings: No bruising or ecchymosis. Neurological: Mental Status: He is alert, oriented to person, place, and time and easily aroused. GCS: GCS eye subscore is 4. GCS verbal subscore is 5. GCS motor subscore is 6. Cranial Nerves: Cranial nerves 2-12 are intact. Sensory: Sensation is intact. Motor: Motor function is intact. Coordination: Coordination is intact. Gait: Gait abnormal. Deep Tendon Reflexes: Reflex Scores: Patellar reflexes are 1+ on the right side and 1+ on the left side. Achilles reflexes are 1+ on the right side and 1+ on the left side. Psychiatric: Attention and Perception: Attention and perception normal. Mood and Affect: Mood and affect normal. Speech: Speech normal. Behavior: Behavior normal. Behavior is cooperative. Thought Content: Thought content normal. Cognition and Memory: Cognition and memory normal. Judgment: Judgment normal. LABS: Labs reviewed as indicated below: Results for orders placed or performed in visit on 05/23/22 COMPREHENSIVE METABOLIC PANEL Result Value Ref Range BUN 15 6 - 20 mg/dL CREATININE 0.9 0.6 - 1.2 mg/dL EGFR >90 >=60 mL/min SODIUM 140 135 - 146 mmol/L POTASSIUM 4.2 3.5 - 5.1 mmol/L CHLORIDE 102 98 - 107 mmol/L CO2 29 22 - 32 mmol/L ANION GAP 9 7 - 15 mmol/L GLUCOSE 106 70 - 120 mg/dL Albumin 5.0 3.8 - 5.0 g/dL AST 21 10 - 50 U/L Alkaline Phosphatase 75 35 - 130 U/L Bilirubin, Total 0.5 <=1.2 mg/dL CALCIUM 9.6 8.4 - 10.2 mg/dL Protein 7.0 6.0 - 8.3 g/dL ALT 25 10 - 50 U/L LIPID PANEL WITH DIRECT LDL IF TG IS HIGH Result Value Ref Range Triglycerides 51 <=174 mg/dL Cholesterol 195 <200 mg/dL HDL Cholesterol 63 >39 mg/dL Non-HDL Cholesterol 132 <=159 mg/dL LDL Cholesterol 122 <=129 mg/dL ERYTHROCYTE SEDIMENTATION RATE (ESR) Result Value Ref Range ESR 13 <15 mm/hour RHEUMATOID FACTOR Result Value Ref Range Rheumatoid Factor <10 <14 IU/mL URIC ACID Result Value Ref Range Uric Acid 3.6 3.4 - 7.0 mg/dL MYCODE SST1 Result Value Ref Range MyCode Specimen Freezing of extracted DNA, whole blood and/or serum. MYCODE SST2 Result Value Ref Range MyCode Specimen Freezing of extracted DNA, whole blood and/or serum. CBC Result Value Ref Range WBC 6.81 4.00 - 10.80 K/uL RBC 5.22 4.50 - 5.25 M/uL HGB 15.4 14.0 - 16.8 g/dL HCT 46.3 40.0 - 48.4 % MCV 88.7 82.0 - 99.5 fL MCH 29.5 27.0 - 34.0 pg MCHC 33.3 32.0 - 36.0 g/dL RDW 12.7 11.5 - 15.5 % PLT 233 140 - 400 K/uL MPV 9.1 6.6 - 11.1 fL nRBCs 0 <=0 /100 WBCs DIFFERENTIAL, AUTOMATED Result Value Ref Range WBC 6.81 4.00 - 10.80 K/uL Neutrophils % 58.4 40.0 - 75.0 % Lymphocytes % 21.9 18.0 - 42.0 % Monocytes % 13.4 (H) 1.0 - 11.0 % Eosinophils % 5.1 0.0 - 6.0 % Basophils % 0.9 0.0 - 2.0 % Immature Granulocytes % 0.3 0.0 - 2.0 % Absolute Neutrophils 3.98 1.80 - 7.70 K/uL Absolute Lymphocytes 1.49 1.00 - 4.80 K/ul Absolute Monocytes 0.91 0.00 - 1.10 K/uL Absolute Eosinophils 0.35 0.00 - 0.70 K/uL Absolute Basophils 0.06 0.00 - 0.20 K/uL Absolute Immature Granulocytes 0.02 0.00 - 0.20 K/uL ANTINUCLEAR ANTIBODY (RICKY) SCREEN, MARYBETH Result Value Ref Range RICKY Screen Negative Negative dsDNA Antibody Interpretation Negative Negative dsDNA Antibody Value <0.6 <20 IU/mL MELISSA Antibodies Screen Interpretation Negative Negative MELISSA Antibodies Screen Value <0.1 <0.7 Ratio LYME DISEASE ANTIBODY SCREEN Result Value Ref Range Lyme Disease Antibody Screen Negative Negative IMAGING: Date 01/10/2024 MRI L SPINE FINDINGS: Vertebral body height and alignment are maintained. There are [place] type degenerative signal changes without worrisome bone marrow signal abnormality. The lumbar pedicles appear congenitally shortened. There is no spinal cord signal abnormality or cauda equina thickening. The conus medullaris terminates at the L1 level. T12-L1: No significant degenerative disc disease or spinal canal or neuroforaminal stenosis. L1-L2: There is diffuse disc bulge and bilateral facet and ligamentum flavum hypertrophy with associated mild narrowing of the spinal canal and mild bilateral neuroforaminal stenosis. L2-L3: There is diffuse disc bulge with superimposed central disc extrusion and bilateral facet hypertrophy with associated moderate to marked narrowing of the spinal canal and [id number] bilateral neuroforaminal stenosis. L3-L4: There is diffuse disc bulge with superimposed central disc extrusion and bilateral facet hypertrophy with associated marked narrowing of the spinal canal and moderate bilateral neuroforaminal stenosis. L4-L5: There is diffuse disc bulge with superimposed central disc extrusion and bilateral facet ligamentum flavum hypertrophy with associated mild narrowing of the spinal canal and moderate to markedbilateral neuroforaminal stenosis. L5-S1: There is diffuse disc bulge with superimposed central disc extrusion and bilateral facet hypertrophy with associated mild narrowing of the spinal canal and marked bilateral neuroforaminal stenosis. The visualized paravertebral musculature is unremarkable. IMPRESSION: Multilevel degenerative disc disease is seen throughout the lumbar spine, resulting in areas of moderate to marked narrowing of the spinal canal and moderate to marked bilateral neuroforaminal stenosis. ASSESSMENT/PLAN: Lumbar radicular pain (Primary) - INJECT DX/THER SUBSTANCE INTERLAMINAR LUMBAR/SACRAL W IMAGE GUIDE; Future; Expected date: 02/22/2024 - Please schedule CARA L5/S1 Spinal stenosis of lumbar region with neurogenic claudication - INJECT DX/THER SUBSTANCE INTERLAMINAR LUMBAR/SACRAL W IMAGE GUIDE; Future; Expected date: 02/22/2024 - Please schedule CARA L5/S1 documented in this encounter OR Notes * OR Surgeon - Juan Pablo Portillo DO - 02/28/2024 1:36 PM EST Procedure Note Lumbar Interlaminar CARA Procedure Date: 02/28/2024 Eamon Rios Date of : 1980 Attending: Juan Pablo Portillo DO PREOPERATIVE DIAGNOSIS: Lumbar radicular pain POSTOPERATIVE DIAGNOSIS: SAME PROCEDURE PERFORMED: Interlaminar Epidural Steroid Injection at the L5-S1 level ESTIMATED BLOOD LOSS: None SPECIMENS AND DRAINS: None FLUOROSCOPY WAS USED. INDICATIONS FOR PROCEDURE: This is a 43 year old year old male with a clinical picture consistent with the above-mentioned diagnosis, resulting in lumbar radiculopathy. PROCEDURE AND FINDINGS: The patient was greeted in the pre procedure holding area. The risk, benefits and alternatives to the procedure were again reviewed with the patient and written informed consent was placed in the chart. Prior to the procedure a time out was completed, verifying correct patient, procedure, site, positioning, and implants and/or special equipment. The patient was taken to the procedure room and positioned prone on the fluoroscopy table. Then a corporation lawyer film was taken to identify the correct level. The skin was prepped and draped in the usual sterile fashion. The overlying skin and subcutaneous tissue was anesthetized using a 25-guage 1-1/2 inchneedle with 1% buffered lidocaine for a total volume of 2 mls. Then a 20g, 9 cm Tuohy needle was advanced under fluorosocpic guidance using an AP, oblique and lateral views into the interlaminar space. A loss of resistance syringe was attached and loss of resistance to saline and air occurred. Then1-2 mls of Omnipaque 180mg/mL was injected under AP and confirmed adequate spread in the epidural space without DSA. There was no evidence of intravascular uptake or intrathecal spread on imaging. A contralateral oblique view was also taken confirming adequate epidural spread. Then 2mls of PFNS mixed with 1mL of 10mg/mL dexamethasone was injected without incident. The needlewas flushed with a small amount of saline, re-styletted and removed. The needle insertion site was dressed appropriately. The patient was taken to the recovery room where he was monitored for a brief period of time. He tolerated the procedure well and were discharged home in stable condition with post procedural instructions. Follow-up will be in clinic. COMPLICATIONS: None documented in this encounter Plan of Treatment Upcoming Encounters Date Type Department Care Team (Late st Contact Info) Description 03/30/2024 7:30 AM EST [facility] [address] [address] Adam Kirby CRNP [address] [place] [address] Health Maintenance Due Date Last Done Comments HIV Screening 06/07/1995 Hepatitis C Screening 1998 Hepatitis B Vaccine (1 of 3 - 19+ 3-dose series) 06/07/1999 Depression Screening 07/30/2018 07/30/2017 DTap/Tdap Vaccines (2 - Td or Tdap) 12/19/2019 12/18/2009, 01/12/2004 COVID-19 Vaccine ( season) 2023 03/19/2021, 08/03/2020, 07/12/2020 Influenza Vaccine (FLU shot) (#1) 2023 02/28/2024, 01/21/2022, 02/14/2021, Additional history exists Diabetes Screening 05/23/2025 05/23/2022, 0 04/20/2018, 12/26/1997 Lipid Panel 05/23/2027 05/23/2022, 03/30, 06/18/2017, Additional history exists Pneumococcal Vaccine: Pediatrics (0 to 5 Years) and At-Risk Patients (6 to 64 Years) Aged Out 01/21/2022 No longer eligible based on patient's age to complete this topic HPV (Gardasil) Vaccine Aged Out No lo nger eligible based on patient's age to complete this topic MENINGOCOCCAL (MENACTRA/MENVEO) Aged Out No longer eligible based on patient's age to complete this topic documented as of this encounter Medical Devices Not on filedocumented as of this encounter Procedures Procedure Name Priority Date/Time Associated Diagnosis Comments FLUORO INTERVENTIONAL PAIN PROCEDURE NONBILLABLE Routine 02/28/2024 1:47 PM EST documented in this encounter Results * FLUORO INTERVENTIONAL PAIN PROCEDURE NONBILLABLE (02/28/2024 1:47 PM EST) Narrative Scheduling, Silent - 02/28/2024 1:47 PM EST This procedure will not be read by a Radiologist. Please see operative note. us Juan Pablo Portillo DO RAD FLUOROSCOPY Final Result documented in this encounter Active and Recently Administered Medications Times are shown in EST. PRN Medication Order 02/26/2024 02/27/2024 02/28/2024 buffered lidocaine 1 % inj (CANCELED) ONCE PRN INTRA PROCEDURE, Starting on 02/28/24 at 1342, Until 02/28/24 at 1345, Intra-Op 1342 (Given - Provid er: Juan Pablo Portillo DO) dexAMETHasone Sodium Phosphate 10 mg in sodium chloride 0.9 % 3 mL inj (CANCELED) ONCE PRN INTRA PROCEDURE, Starting on 02/28/24 at 1341, Until 02/28/24 at 1345, Intra-Op 1341 (Given - Provid er: Juan Pablo Portillo DO) Iopamidol (Isovue M 200) inj (CANCELED) ONCE PRN INTRA PROCEDURE, Starting on Wed02/28/24 at 1341, Until Wed02/28/24 at 1345, Intra-Op 1341 (Given - Provid er: Juan Pablo Portillo DO) documented in this encounter Care Teams Regional Marketing Director Relationship Specialty Start Date End Date Marzena Abraham PA-C [address] [facility] [place] [address] PCP - General Physician Pigment Presser 02/28/24 documented as of this encounter
--- OUTSIDE RECORDS SUMMARY | 2024-05-30 14:19 | External Medical Summary | Summary of Care ---
Author Name Unknown Organization [facility] Address [address] [place] [address] Phone [phone] Care Team Providers Care Progressive Care Manager Name Role Phone Kathia Duran Primary Care Provide r Reason for Visit * Reason Onset Date Comments Imaging Records Request 01/14/2024 Encounter Details Date Type Department Care Team (Late st Contact Info) Description 01/14/2024 Telephone Radiology Film File [address], [place] [id number] Support, Imaging Radiology [address] [place] [address] Imaging Records Request Allergies Active Allergy Reactions Criticality Noted Date Comments Morphine And Codeine 03/09/2006 Hives Vancomycin 03/09/2006 Hives documented as of this encounter (statuses as of 01/14/2024) Medications Medication Sig Dispensed Refills Start Date End Date Status Ventolin HFA 108 (90 Base) MCG/ACT Inhalation Aerosol SolutionIndications :Exacerbation of asthma, unspecified asthma severity, unspecified whether persistent Inhale by mouth 2 Puffs every 4 hours as needed for Wheezing. 18 g 3 01/09/2022 Active Erythromycin 5 MG/GM Ophthalmic OintmentIndications :[place] eye disease of left eye Instill into eye at bedtime . 3.5 g 01/09/2022 Active Additional Information Patient not taking.Reported on 01/21/2022 tiZANidine HCl 2 MG Oral Capsule (Zanaflex) Take 1 Capsule by mouth 3 times a day as needed for Muscle spasms. 24 Capsule 12/13/2023 Active oxyCODONE-Acetamino phen 5-325 MG Oral Tablet (Percocet) Take 1 Tablet by mouth at bedtime as needed for Pain, Severe. 4 Tablet 12/13/2023 Active documented as of this encounter (statuses as of 01/14/2024) Active Problems Problem Noted Date Diagnosed Date RITCHIE (obstructive sleep apnea) 12/05/2021 documented as of this encounter (statuses as of 01/14/2024) Immunizations Name Administration Dates Next Due COVID-19 mRNA, LNP-s, No Pre serve, 2-Dose Series (Pfizer) 03/19/2021,08/03/2020,07/12/2020 Pneumococcal Conjugate Vacci ne, 20-valent ([id number]) 01/21/2022 Seasonal Influenza, PF, 6 M & above, IM , (FluLaval or Fluzone) 01/21/2022,02/14/2021,01/17/2018 TD - Tetanus/Diptheria (ADULT) 01/12/2004 TDAP, Age [...] Recorded Sex Assigned at Not on file Gender Identity Not on file Sexual Orientation Not on file Job Start Date Occupation Industry Not on file Not on file Not on file documented as of this encounter Miscellaneous Notes * Telephone Encounter - Mike Colbert, Epic Support - 01/14/2024 10:42 AM EDT [facility] requesting 12-08-2023 to 01-10-2024 MRI L SPINE, XR L SPINE images be pushed to their system. [place] Authorization to Release on file. Imaging pushed to [facility] external PACs connection Associated report(s) not needed. documented in this encounter Plan of Treatment Health Maintenance Due Date Last Done Comments HIV Screening 06/07/1995 Hepatitis C Screening 1998 Hepatitis B Vaccine (1 of 3 - 19+ 3-dose series) 06/07/1999 Depression Screening 07/30/2018 07/30/2017 DTap/Tdap Vaccines (2 - Td or Tdap) 12/19/2019 12/18/2009, 01/12/2004 COVID-19 Vaccine (4 - season) 2023 03/19/2021, 08/03/2020, 07/12/2020 Influenza Vaccine (FLU shot) (#1) 2023 01/21/2022, 02/14/2021, 01/17/2018 Diabetes Screening 05/23/2025 05/23/2022, 0 04/20/2018, 12/26/1997 [...] filedocumented as of this encounter Care Teams Progressive Care Manager Relationship Specialty Start Date End Date Kathia Duran CRNP [address] [place] [address] [place] [id number] PCP - General Nurse Practitioner 06/10/22 documented as of this encounter
--- OUTSIDE RECORDS SUMMARY | 2024-05-30 14:19 | External Medical Summary | Continuity of Care Document ---
Author Name Unknown Organization [place] Address [address] [facility], [place] [address] Phone [phone] Problems Active Problems Provider Date Obstructive sleep apnea syndrome Ezekiel Cruz Onset: 01/26/2022 Mild intermittent asthma Deonna Webster PA-C On set: 03/05/2022 Social History Type Date Description Comments Sex Unknown Tobacco Use Reviewed: 12/10/23 Never Smoked Cigarette s Tobacco Use Reviewed: 12/10/23 Never Smoked Cigars Tobacco Use Reviewed: 12/10/23 Never Smoked A Pipe Smoking Status Reviewed: 12/28/23 Never Smoked A Pipe Smokeless Tobacco 12/28/2023 Current Smokel ess Tobacco User, Uses Occasionally 1 Can per Day ETOH Use Occasionally consumes alcoho l Tobacco Use Start: Unknown Patient has never smoked Allergies and adverse reactions Active Allergies Criticality Reaction | Severity Comments Date Morphine Unable to assess criticality Hives 01/26/2022 Vancomycin Unable to assess criticality Hives 01/26/2022 Medications Active Medications SIG Qnty Indications Order ing Provider Date Hydrocodone Bitartrate/Acetaminophe n5-325mg Tablets 1 by mouth every 4-6 hours as needed pain-initial treatment 18tabs M51.16 Baldemar Oh, 12/28/2023 Tizanidine HCL4mg Capsules 1 po q 8 hours prn 90anil Oh DO 12/23/2023 [id number] Capsules 1 by mouth every day day 1, 1 by mouth twice a day day 2, then 1 by mouth three times a day 90anil Oh DO 12/23/2023 Uancielis62fn Tablets 1 by mouth every day 30tabs M54.50 Baldemar Oh DO 12/08/2023 NebulizerMisc with supplies - use as directed; dx j45.901 1units J45.901 CICI Santiago 11/04/2022 Ipratropium [place]/Albuterol Sulfate0.5-2.5(3)mg/3ML Solution nebulize 1 unit every 6 hours as needed for wheezing. 90ml J45.901 Baldemar Oh DO 11/04/2022 Cyclobenzaprine SXX76od Tablets take 1 tablet by mouth every 8 hours as needed for muscle spasms 20tabs M54.50 Oralia Obrien MD 03/05/2022 Ventolin RIG618(90Base) mcg/Act Aerosol 2 puffs by mouth every 4 hours as needed wheezing 1gm CICI Santiago History Medications Lorobhood69vy Tablets 1 by mouth every day for [...] CPT Code Status Date Vaccine Lot # [id number] Given 03/05/2022 Tdap (Tetanus, diphtheria & acel. pertussis) Adacel or Boostrix [id number] U-FLU Given 01/21/2022 Influenza,Unspecified 23941 Given 01/21/2022 Pneumococcal Conjugate-Pr evnar 20 [id number] 80478 Given 03/19/2021 Pfizer Sars-Cov -2 (Cov-19) vacc 30mcg/0.3ML 12Y+ EMR Doc Only U-FLU Given 02/14/2021 Influenza,Unspecified 59571 Given 08/03/2020 Pfizer Sars-Cov -2 (Cov-19) vacc 30mcg/0.3ML 12Y+ EMR Doc Only 86646 Given 07/12/2020 Pfizer Sars-Cov -2 (Cov-19) vacc 30mcg/0.3ML 12Y+ EMR Doc Only U-FLU Given 01/17/2018 Influenza,Unspecified 12907 Given 12/18/2009 Tdap (Tetanus, diphtheria & acel. pertussis) Adacel or Boostrix 08038 Given 01/12/2004 Td (Tetanus & Diphtheria) [facility] [address] Refused 03/05/2022 Moderna Sars-Co v-2 (Covid-19) Vaccine, BiValent Booster 12y+ Vital Signs Date Vital Result Comment 12/28/2023 8:28am BP Systolic 118 mmHg BP Diastolic 88 mmHg Body Temperature 97.5 F Heart Rate 72 /min Respiratory Rate 20 /min Weight 218.00 lb Weight 98.885 kg Height 67.5 inches 5'7.50" BMI (Body Mass Index) 33.6 kg/m2 [place] Body Weight 148 lb 12/10/2023 1:29pm BP Systolic 124 mmHg BP Diastolic 76 mmHg Body Temperature 97.7 F Heart Rate 88 /min Respiratory Rate 18 /min Weight 216.38 lb Weight 98.148 kg Results Test Acquired Date Facility Test Result H/L Range N ote Laboratory test finding 12/28/[address] [facility] [place] [address] [phone] Prescribed Drugs, Medmatch(R) <pending> Procedures Date Code Description Status 12/10/2023 J1885 Injection Ketorolac Trometha mine Per 15 mg/.5cc (Toradol) Completed 12/10/2023 J1010 Inj, methylpred acetate 1 mg Completed 12/10/2023 30210 Inj Subcutaneous Or Intramus cular Completed 07/28/2023 53049 Remove Impact Cerumen Irriga tion Completed Medical Devices Description No Information Available Encounters Type Date Location Provider Dx Diagnosis Office Visit 12/28/2023 8:30a Hiro Abraham PA-C M51.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, lumbar region Office Visit 12/10/2023 1:30p Hiro Abraham PA-C M51.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, lumbar region Office Visit 12/08/2023 1:00p Hiro Young MD M54.50 Low back pain, unspecified Office Visit 07/28/2023 6:15p [place] CICI Santiago H61.23 Impacted cerumen, bilateral Assessments Date Code Description Provider 12/28/2023 M51.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 d isc disorders with radiculopathy, lumbar region Marzena Abraham PA-C 12/10/2023 M51.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 d isc disorders with radiculopathy, lumbar region Marzena Abraham PA-C 12/08/2023 M54.50 Low back pain, unspecified M ramón Young MD 07/28/2023 H61.23 Impacted cerumen, bilateral CICI Santiago Plan of Treatment 12/28/2023 - Marzena Abraham PA-C* M51.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 disc disorders with radiculopathy, lumbar region* New Medication:* Hydrocodone Bitartrate/Acetaminophen 5-325 mg - 1 by mouth every 4-6 hours as needed pain- initial treatment * New Xrays:* MRI Lumbar Spine W/O Contrast, Ordered: 12/28/23 * Follow up:* MRI LS spine Functional Status Description No Information Available Mental Status Description No Information Available Referrals Description No Information Available
--- OUTSIDE RECORDS SUMMARY | 2024-05-30 14:19 | External Medical Summary | Continuity of Care Document ---
Author Name Unknown Organization [place] Address [address] [facility], [place] [address] Phone [phone] Problems Active Problems Provider Date Obstructive sleep [...] 8 hours prn 90anil Oh DO 12/23/2023 Clbpdaeju944ey Capsules 1 by mouth every day day 1, 1 by mouth twice a day day 2, then 1 by mouth three times a day 90anil Oh DO 12/23/2023 Pkqrouufr63vq Tablets 1 by mouth every day 30tabs M54.50 Baldemar Oh DO 12/08/2023 NebulizerMisc with supplies - use as directed; dx j45.901 1units J45.901 CICI Santiago 11/04/2022 Ipratropium [place]/Albuterol Sulfate0.5-2.5(3)mg/3ML Solution nebulize 1 unit every 6 hours as needed for wheezing. 90ml J45.901 Baldemar Oh DO 11/04/2022 Cyclobenzaprine ILX06xl Tablets take 1 tablet by mouth every 8 hours as needed for muscle spasms 20tabs M54.50 Oralia Obrien MD 03/05/2022 Ventolin FYA930(90Base) mcg/Act Aerosol 2 puffs by mouth every 4 hours as needed wheezing 1gm CICI Santiago History Medications Sxthsagjo60zn Tablets 1 by mouth every day for [...] CPT Code Status Date Vaccine Lot # [id number] Given 03/05/2022 Tdap (Tetanus, diphtheria & acel. pertussis) Adacel or Boostrix [id number] U-FLU Given 01/21/2022 Influenza,Unspecified 44062 Given 01/21/2022 Pneumococcal Conjugate-Pr evnar 20 [id number] 91091 Given 03/19/2021 Pfizer Sars-Cov -2 (Cov-19) vacc 30mcg/0.3ML 12Y+ EMR Doc Only U-FLU Given 02/14/2021 Influenza,Unspecified 76847 Given 08/03/2020 Pfizer Sars-Cov -2 (Cov-19) vacc 30mcg/0.3ML 12Y+ EMR Doc Only 55825 Given 07/12/2020 Pfizer Sars-Cov -2 (Cov-19) vacc 30mcg/0.3ML 12Y+ EMR Doc Only U-FLU Given 01/17/2018 Influenza,Unspecified 40397 Given 12/18/2009 Tdap (Tetanus, diphtheria & acel. pertussis) Adacel or Boostrix 56117 Given 01/12/2004 Td (Tetanus & Diphtheria) [facility]iva 18565 Refused 03/05/2022 Moderna Sars-Co v-2 (Covid-19) Vaccine, BiValent Booster 12y+ Vital Signs Date Vital Result Comment 12/28/2023 8:28am BP Systolic 118 mmHg BP Diastolic 88 mmHg Body Temperature 97.5 F Heart Rate 72 /min Respiratory Rate 20 /min Weight 218.00 lb Weight 98.885 kg Height 67.5 inches 5'7.50" BMI (Body Mass Index) 33.6 kg/m2 [place] Body Weight 148 lb 12/10/2023 1:29pm BP Systolic 124 mmHg BP Diastolic 76 mmHg Body Temperature 97.7 F Heart Rate 88 /min Respiratory Rate 18 /min Weight 216.38 lb Weight 98.148 kg Results Test Acquired Date Facility Test Result H/L Range Note Drug Monitor, Panel 1 W/Conf Urine 12[facility]28/2023 [facility] [address] [place] [address] [place] [address] [phone] Amphetamines NEGATIVE ng/mL Normal <500 medMATCH Amphetamines [...] mg/dL Normal > or = 20.0 Specific [place] DNR Normal > or = 1.003 pH 5.2 Normal 4.5-9.0 Oxidant NEGATIVE g /mL Normal <200 Abnormal Specim en Validity Test: DNR Normal Prescribed Drugs, Medmatch(R) 12/28/[address] [facility] [address] [place] [address] [phone] medMATCH Summary (SEE NOTE) 1 Prescribed Drug 1 DNR Normal Prescribed Drug 2 DNR Normal Prescribed Drug 3 DNR Normal Prescribed Drug 4 DNR Normal Prescribed Drug 5 DNR Normal Prescribed Drug 6 DNR Normal Prescribed Drug 7 DNR Normal Prescribed Drug 8 DNR Normal Prescribed Drug 9 DNR Normal Prescribed Drug 10 DNR Normal Drug Monitoring Template 12/28/[address] [facility] [address] [place] [address] Notes and Comments (SEE NOTE) 2 Patient Histori job Report DNR Normal Laboratory test finding 12/28/20[address] [facility] [address] [place] [address] Enhanced PDF Report [id number] SEE IMAGE 1 Summary not applicab le [...] needing Interpretation assistance, please contact us at [phone] ( ) M-F, 8am to 10pm EST Procedures Date Code Description Status 12/23/2023 07829 Physical Therapy Evaluation Low Complexity Completed 12/23/2023 07012 Therapy Proc 1/> Area 15Min Ea Completed 12/10/2023 J1885 Injection Ketorolac Trometha mine Per 15 mg/.5cc (Toradol) Completed 12/10/2023 J1010 Inj, methylpred acetate 1 mg Completed 12/10/2023 09500 Inj Subcutaneous Or Intramus cular Completed 07/28/2023 36161 Remove Impact Cerumen Irriga tion Completed Medical Devices Description No Information Available Encounters Type Date Location Provider Dx Diagnosis Office Visit 12/28/2023 8:30a [place] Marzena Abraham PA-C M51.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, lumbar region Office Visit 12/10/2023 1:30p Hiro Abraham PA-C M51.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, lumbar region Office Visit 12/08/2023 1:[place]p [place] M54.50 Low back pain, unspecified Office Visit 07/28/2023 6:15p [place] CICI Santiago H61.23 Impacted cerumen, bilateral Assessments Date Code Description Provider 12/28/2023 M51.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 d isc disorders with radiculopathy, lumbar region Marzena Abraham PA-C 12/23/2023 M54.16 Radiculopathy, lumbar region Oren Pinedosen, DPT 12/23/2023 M54.50 Low back pain, unspecified E katheryn Welch, DPT 12/23/2023 M79.605 Pain in left leg Oren J Jonathan en, DPT 12/23/2023 M79.604 Pain in right leg Oren J Mad sen, DPT 12/10/2023 M51.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 d isc disorders with radiculopathy, lumbar region Marzena Abraham PA-C 12/08/2023 M54.50 Low back pain, unspecified Bessy Young MD 07/28/2023 H61.23 Impacted cerumen, bilateral [...]
--- OUTSIDE RECORDS SUMMARY | 2024-05-30 14:19 | External Medical Summary | Continuity of Care Document ---
Author Name Unknown Organization [place] Address [address] [facility], [place] [address] Phone [phone] Problems Active Problems Provider Date Obstructive sleep apnea syndrome Ezekiel Cruz Onset: 01/26/2022 Mild intermittent asthma Deonna Webster PA-C On set: 03/05/2022 Social History Type Date Description Comments Sex Unknown Tobacco Use Reviewed: 12/10/23 Never Smoked Cigarette s Tobacco Use Reviewed: 12/10/23 Never Smoked Cigars Tobacco Use Reviewed: 12/10/23 Never Smoked A Pipe Smoking Status Reviewed: 12/10/23 Never Smoked A Pipe Smokeless Tobacco 12/10/2023 Current Smokel ess Tobacco User, Uses Occasionally 1 Can per Day ETOH Use Occasionally consumes alcoho l Tobacco Use Start: Unknown Patient has never smoked Allergies and adverse reactions Active Allergies Criticality Reaction | Severity Comments Date Morphine Unable to assess criticality Hives 01/26/2022 Vancomycin Unable to assess criticality Hives 01/26/2022 Medications Active Medications SIG Qnty Indications Order ing Provider Date Lpiwizhmx52jj Tablets 1 by mouth every day M54.50 Minerva Young MD 12/08/2023 NebulizerMisc with supplies - use as directed; dx j45.901 1units J45.901 CICI Santiago 11/04/2022 Ipratropium [place]/Albuterol Sulfate0.5-2.5(3)mg/3ML Solution nebulize 1 unit every 6 hours as needed for wheezing. 90ml J45.901 Baldemar Oh DO 11/04/2022 Cyclobenzaprine IRL36wi Tablets take 1 tablet by mouth every 8 hours as needed for muscle spasms 20tabs M54.50 Oralia Obrien MD 03/05/2022 Ventolin LXZ058(90Base) mcg/Act Aerosol 2 puffs by mouth every 4 hours as needed wheezing 1gm CICI Santiago History Medications Grvlrmxup39dl Tablets 1 by mouth every day for [...] CPT Code Status Date Vaccine Lot # [id number] Given 03/05/2022 Tdap (Tetanus, diphtheria & acel. pertussis) Adacel or Boostrix [id number] U-FLU Given 01/21/2022 Influenza,Unspecified 34812 Given 01/21/2022 Pneumococcal Conjugate-Pr evnar 20 [id number] 52838 Given 03/19/2021 Pfizer Sars-Cov -2 (Cov-19) vacc 30mcg/0.3ML 12Y+ EMR Doc Only U-FLU Given 02/14/2021 Influenza,Unspecified 33412 Given 08/03/2020 Pfizer Sars-Cov -2 (Cov-19) vacc 30mcg/0.3ML 12Y+ EMR Doc Only 21781 Given 07/12/2020 Pfizer Sars-Cov -2 (Cov-19) vacc 30mcg/0.3ML 12Y+ EMR Doc Only U-FLU Given 01/17/2018 Influenza,Unspecified 61827 Given 12/18/2009 Tdap (Tetanus, diphtheria & acel. pertussis) Adacel or Boostrix 78822 Given 01/12/2004 Td (Tetanus & Diphtheria) [facility]iva 09623 Refused 03/05/2022 Moderna Sars-Co v-2 (Covid-19) Vaccine, BiValent Booster 12y+ Vital Signs Date Vital Result Comment 12/10/2023 1:29pm BP Systolic 124 mmHg BP Diastolic 76 mmHg Body Temperature 97.7 F Heart Rate 88 /min Respiratory Rate 18 /min Weight 216.38 lb Weight 98.148 kg 12/08/2023 1:05pm BP Systolic 130 mmHg BP Diastolic 70 mmHg Body Temperature 98.2 F Heart Rate 72 /min Respiratory Rate 16 /min Weight 216.00 lb Weight 97.978 kg Procedures Date Code Description Status 12/10/2023 J1885 Injection Ketorolac Trometha mine Per 15 mg/.5cc (Toradol) Completed 12/10/2023 J1010 Inj, methylpred acetate 1 mg Completed 12/10/2023 94776 Inj Subcutaneous Or Intramus cular Completed 07/28/2023 65858 Remove Impact Cerumen Irriga tion Completed Medical Devices Description No Information Available Encounters Type Date Location Provider Dx Diagnosis Office Visit 12/10/2023 1:30p Hiro Abraham PA-C M51.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, lumbar region Office Visit 12/08/2023 1:00p Hiro Young MD M54.50 Low back pain, unspecified Office Visit 07/28/2023 6:[place]p [place] H61.23 Impacted cerumen, bilateral Assessments Date Code Description Provider 12/10/2023 M51.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 d isc disorders with radiculopathy, lumbar region Marzena Abraham PA-C 12/08/2023 M54.50 Low back pain, unspecified Bessy Young MD 07/28/2023 H61.23 Impacted cerumen, bilateral CICI Santiago Plan of Treatment 12/10/2023 - Marzena Abraham PA-C* M51.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 disc disorders with radiculopathy, lumbar region* New Orders:* Physical Therapy Eval & Treat, Scheduled: 01/12/24 * Follow up:* refer to PT downstairs Functional Status Description No Information Available Mental Status Description No Information Available Referrals Description No Information Available"
--- OUTSIDE RECORDS SUMMARY | 2024-05-30 14:19 | External Medical Summary | Continuity of Care Document ---
Author Name Unknown Organization [facility] Address [address] [place] [address] Phone [phone] Problems Active Problems Provider Date Obstructive sleep [...] Capsules 1 po q 8 hours prn 90rayshawns Baldemar Oh DO 12/23/2023 Jooqcvkzx911kr Capsules 1 by mouth every day day 1, 1 by mouth twice a day day 2, then 1 by mouth three times a day 90anil Oh DO 12/23/2023 Afpvuysla52mb Tablets 1 by mouth every day 30tabs M54.50 Baldemar Oh DO 12/08/2023 NebulizerMisc with supplies - use as directed; dx j45.901 1units J45.901 CICI Santiago 11/04/2022 Ipratropium [place]/Albuterol Sulfate0.5-2.5(3)mg/3ML Solution nebulize 1 unit every 6 hours as needed for wheezing. 90ml J45.901 Baldemar Oh DO 11/04/2022 Cyclobenzaprine LMM43cj Tablets take 1 tablet by mouth every 8 hours as needed for muscle spasms 20tabs M54.50 Oralia Obrien MD 03/05/2022 Ventolin NWI085(90Base) mcg/Act Aerosol 2 puffs by mouth every 4 hours as needed wheezing 1gm CICI Santiago History Medications Vpoilirbd48sd Tablets 1 by mouth every day for [...] CPT Code Status Date Vaccine Lot # [id number] Given 03/05/2022 Tdap (Tetanus, diphtheria & acel. pertussis) Adacel or Boostrix [id number] U-FLU Given 01/21/2022 Influenza,Unspecified 71080 Given 01/21/2022 Pneumococcal Conjugate-Pr evnar 20 [id number] 99519 Given 03/19/2021 Pfizer Sars-Cov -2 (Cov-19) vacc 30mcg/0.3ML 12Y+ EMR Doc Only U-FLU Given 02/14/2021 Influenza,Unspecified 70579 Given 08/03/2020 Pfizer Sars-Cov -2 (Cov-19) vacc 30mcg/0.3ML 12Y+ EMR Doc Only 91010 Given 07/12/2020 Pfizer Sars-Cov -2 (Cov-19) vacc 30mcg/0.3ML 12Y+ EMR Doc Only U-FLU Given 01/17/2018 Influenza,Unspecified 27550 Given 12/18/2009 Tdap (Tetanus, diphtheria & acel. pertussis) Adacel or Boostrix 09477 Given 01/12/2004 [facility] 03/05/2022 Moderna Sars-Co v-2 (Covid-19) Vaccine, BiValent Booster 12y+ Vital Signs Date Vital Result Comment 12/28/2023 8:28am BP Systolic 118 mmHg BP Diastolic 88 mmHg Body Temperature 97.5 F Heart Rate 72 /min Respiratory Rate 20 /min Weight 218.00 lb Weight 98.885 kg Height 67.5 inches 5'7.50" BMI (Body Mass Index) 33.6 kg/m2 [place] Body Weight 148 lb 12/10/2023 1:29pm BP Systolic 124 mmHg BP Diastolic 76 mmHg Body Temperature 97.7 F Heart Rate 88 /min Respiratory Rate 18 /min Weight 216.38 lb Weight 98.148 kg Results Test Acquired Date Facility Test Result H/L Range Note Drug Monitor, Panel 1 W/Conf Urine [facility] [address] [place] [address] [place] [address] Amphetamines NEGATIVE ng/mL Normal <500 medMATCH Amphetamines [...] mg/dL Normal > or = 20.0 Specific [place] DNR Normal > or = 1.003 pH 5.2 Normal 4.5-9.0 Oxidant NEGATIVE g /mL Normal <200 Abnormal Specim en Validity Test: DNR Normal Prescribed Drugs, Medmatch(R) 12/28/[address] [facility] [address] [place] [address] [phone] medMATCH Summary (SEE NOTE) 1 Prescribed Drug 1 DNR Normal Prescribed Drug 2 DNR Normal Prescribed Drug 3 DNR Normal Prescribed Drug 4 DNR Normal Prescribed Drug 5 DNR Normal Prescribed Drug 6 DNR Normal Prescribed Drug 7 DNR Normal Prescribed Drug 8 DNR Normal Prescribed Drug 9 DNR Normal Prescribed Drug 10 DNR Normal Drug Monitoring Template 12/28/[address] [facility] [address] [place] [address] Notes and Comments (SEE NOTE) 2 Patient Histori job Report DNR Normal Laboratory test finding 12/28/[address] [facility] [address] [place] [address] Enhanced PDF Report [id number] SEE IMAGE 1 Summary not applicab le [...] needing Interpretation assistance, please contact us at [phone] ( ) M-F, 8am to 10pm EST Procedures Date Code Description Status 12/23/2023 24003 Physical Therapy Evaluation Low Complexity Completed 12/23/2023 33368 Therapy Proc 1/> Area 15Min Ea Completed 12/10/2023 J1885 Injection Ketorolac Trometha mine Per 15 mg/.5cc (Toradol) Completed 12/10/2023 J1010 Inj, methylpred acetate 1 mg Completed 12/10/2023 51885 Inj Subcutaneous Or Intramus cular Completed 07/28/2023 62242 Remove Impact Cerumen Irriga tion Completed Medical Devices Description No Information Available Encounters Type Date Location Provider Dx Diagnosis Office Visit 12/28/2023 8:30a [place] Abraham PA-C M51.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, lumbar region Office Visit 12/10/2023 1:30p Hiro Abraham PA-C M51.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, lumbar region Office Visit 12/08/2023 1:00p Gertonyesenia Young MD M54.50 Low back pain, unspecified Office Visit 07/28/2023 6:15p [facility] [place] H61.23 Impacted cerumen, bilateral Assessments Date Code Description Provider 12/28/2023 M51.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 d isc disorders with radiculopathy, lumbar region Marzena Abraham PA-C 12/23/2023 M54.16 Radiculopathy, lumbar region Oren Mara PinedoYuri, DPT 12/23/2023 M54.50 Low back pain, unspecified E katheryn Pinedosen, DPT 12/23/2023 M79.605 Pain in left leg Oren J Jonathan en, DPT 12/23/2023 M79.604 Pain in right leg Orne J Mad sen, DPT 12/10/2023 M51.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 [...]
--- OUTSIDE RECORDS SUMMARY | 2024-05-30 14:19 | External Medical Summary | Continuity of Care Document ---
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 Role Phone Marzena Abraham Primary Care Physician [phone] Encounter [facility] FINNBR [id number] Date(s): 01/24/24 - 01/24/24 [facility]MP [address] [facility] - Neurosurgery [address] [place] [address] Encounter Diagnosis Lumbar radiculopathy(Discharge Diagnosis) - 01/24/24 Discharge Disposition: Home or Self Care Attending Physician: MD Fercho, Edson Antonio Referring Physician: CUAUHTEMOC Abraham Heather S Allergies, Adverse Reactions, Alerts Substance Criticality Severity Reaction Reaction Severity Status vancomycin Wheal Active morphine 1 Unknown Active 1Outside Source Comment: Hives Medications acetaminophen-hydrocodone 325 mg-5 mg oral tablet Start: 01/24/24 12:52:00 PM EDT, Refills: 0 Start Date: 01/24/24 Status: Ordered albuterol-ipratropium 2.5 mg-0.5 mg/3 mL inhalation solution Start: 01/24/24 12:52:00 PM EDT Start Date: 01/24/24 Status: Ordered gabapentin 300 mg oral capsule Start: 01/24/24 12:51:00 PM EDT Start Date: 01/24/24 Status: Ordered meloxicam 15 mg oral tablet Start: 01/24/24 12:51:00 PM EDT Start Date: 01/24/24 Status: Ordered tiZANidine 4 mg oral capsule Start: 01/24/24 12:51:00 PM EDT Start Date: 01/24/24 Status: Ordered Mental Status 01/24/24 Barriers to Learning one year None evide nt Mandatory Health Literacy Documentation Yes Health Literacy Communication Barriers N ever Primary Language Egyptian Problem List No Chronic Problems Diagnosis Diagnosis Type Effective Dates Health Status Clinical Service Informant Lumbar radiculopathy Discharge Diagnosis 01/24/24 Non-Specified Vital Signs Most recent to oldest [Reference Range]: 1 Height 172.72 cm (01/24/24 12:53 PM) Patient Weight 101.4 kg (01/24/24 12:53 PM) Body Mass Index 33.99 kg/m2 (01/24/24 12:53 PM) Social History Social History Type Response Smoking Status Never smoked cigaret jony Sex Male Sex Representation Male (finding) History and physical note * MD Fercho, Edson Antonio: PERFORM Event Display: H&P Authored Date: [id number] Name:SKYLER RIOS Patient Number:[id number] :1980 Date of Service:01/24/2024 Chief Complaint follow up MRI and xrays History of Present Illness I had the pleasure of seeing Mr. Rios today in consultation for back pain and sciatica. He also has associated weakness based on referral. 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 The pain is worse by walking, changing positions, bending forward or back. The pain affects his sleeping her ability to work. When he walks the pain is not up to 10. He has tried Aleve arthritis, cyclobenzaprine. He has then beenswitched to tizanidine. Meloxicam of gabapentin have been added. He is also on Vicodin. When he takes all the meds he feels ok buthe gets drowsy. Overall the last 1.5 weeks have been much better than before. The pain is now back dominant but gets it in the left leg too. Not so much right leg anymore. No numbness, some tingling Back feels more like burning No weakness if it was not for the pain Bowel and bladder ok. No UE symptoms PT: started it but could not continue because of the pain. Epidural steroid injections- none Currently not working because of the pain, has been off for the past 7 weeks. Review of Systems 10 point review of systems otherwise negative Physical Exam Vitals & Measurements HT:172.72cm WT:101.400kg(Dosing) WT:101.4kg BMI:33.99 BMI:33.99 kg/m2 prefers to sit off of his left side as leaning causes pain. Muscle strength: Lower Extremity Motor Right Left Iliopsoas (L2) 5 5 Quadriceps (L3) 5 5 Hamstrings 5 5 Anterior tibialis (L4) 5 5 Gastrocnemius (L5-S1) 5 5 Extensor hallucis longus (L5-S1) 5 5 Reflexes: Reflexes Right Left Patella (L4) 2+ 2+ Achilles (S1) 2+ 2+ Gait normal Sensation: intact Straight leg test: Right LE: negative Left LE: positive Diagnostic Results I personally reviewed the MRI of the lumbar spine that was performed at outside institution on January 09. Here we see moderate to severe central canal stenosis at L3-4, there is lateral recess stenosis at L4-5,there is also a broad-based disc bulge at L5-S1 causing lateral recess stenosis.There is bilateral moderate to severe foraminal stenosis at L5-S1. There are endplate changesthat are very minor on the right side at L5-S1. Assessment/Plan 1.Lumbar radiculopathy Improving gradually. Would like a referral to pain management for CARA. Can do PT after that. Okay to go back to work light duty. Follow-up in 4 to 6 weeks after pain management to evaluate options. He can call me sooner if anything changes. 1. Lumbar radiculopathy 823[address] Outpatient Consult 4, 01/24/24 13:12:00 EDT, NEUROSURGERY, Lumbar radiculopathy, (40-54 Mins) Follow Up Appointment Ambulatory, In 6-8 Weeks, Appointment Type Patient Preference Physician Consult/Referral Request, Medical Service: Pain Management, Chronic, Reason: sciatica, Internal/External Reason: [facility] Preferred Network Referral, Start: 01/24/24 13:24:00 EDT, Requested Timeframe: First Available, Lumbar radiculopathy Attestation I, Paco Brantley MD, am completely responsible for my documentation. I personally reviewed thepatient's clinical chart,testing, vital signs, and personally interviewed and examined the patient and reviewed multiple imaging studies and the radiology report interpretations. Idetermined pertinent clinical problems, formulated the plan, communicated with additional healthcare providers asindicatedand have completed the documentation. I agree and certify that the information above isaccurateto the best of my knowledge. Total time spent with the patient was42 minutes of which greater than 50% of the total face to face time was spent involving performing a history and physical examination, reviewing treatment options, counseling and or coordination of care with family and other providers as described in the note. This note was completed in part, utilizing [employer] Voice Recognition Software. Grammatical errors, random word substitutions, spelling mistakes and incomplete sentences are an occasional consequence of this system due to software limitations, ambient noise, and hardware issues. If you have any concerns regarding the context or information contained within the body of this dictation; please contact the provider for clarification. Problem List/Past Medical History Ongoing No chronic problems Medications Home acetaminophen-hydrocodone(acetaminophen-hydrocodone 325 mg-5 mg oral tablet) albuterol-ipratropium(albuterol-ipratropium 2.5 mg-0.5 mg/3 mL inhalation solution) gabapentin(gabapentin 300 mg oral capsule) meloxicam(meloxicam 15 mg oral tablet) tiZANidine(tiZANidine 4 mg oral capsule) Allergies morphineUnknown vancomycinWheal Social History Smoking Status Never smoked cigarettes Electronic Signature on File Electronically Reviewed/Signed by: Edson Brantley MD Author Signature Dt/Tm:01/24/2024 01:31 PM Department of Neurosurgery [facility] Patient Care team information Care Team Personnel Name: CUAUHTEMOC Abraham Heather S Position: Referring Member Role: Primary Care Provider Address: [address] [place] [address] Care Team Related Persons Name: REAGAN RIOS
--- OUTSIDE RECORDS SUMMARY | 2024-05-30 14:19 | External Medical Summary | Continuity of Care Document ---
Author Name Unknown Organization [facility] Address [address] [place] [address] Phone [phone] Problems Active Problems Provider Date Obstructive sleep [...] Qnty Indications Order ing Provider Date Hydrocodone Bitartrate/Acetaminoph en5-325mg Tablets 1 by mouth every 4-6 hours as needed pain-initial treatment 18tabs M51.16 Baldemar Oh DO 12/28/2023 Tizanidine HCL4mg Capsules 1 po q 8 hours prn 90caps Baldemar Oh DO 12/23/2023 [id number] Capsules 1 by mouth every day day 1, 1 by mouth twice a day day 2, then 1 by mouth three times a day 90caps Baldemar Oh, 12/23/2023 [id number] Tablets 1 by mouth every day 30tabs M54.50 Baldemar Oh, 12/08/2023 NebulizerMisc with supplies - use as directed; dx j45.901 1units J45.901 ICCI Santiago 11/04/2022 Ipratropium [place]/Albuterol Sulfate0.5-2.5(3)mg/3M L Solution nebulize 1 unit every 6 hours as needed for wheezing. 90ml J45.901 Baldemar Oh, 11/04/2022 Ventolin IWU009(90Base) mcg/Act Aerosol 2 puffs by mouth every 4 hours as needed wheezing 1gm CICI Santiago History Medications Zmzrsszkv07un Tablets 1 by mouth every day for [...] CPT Code Status Date Vaccine Lot # [id number] Given 03/05/2022 Tdap (Tetanus, diphtheria & acel. pertussis) Adacel or Boostrix [id number] U-FLU Given 01/21/2022 Influenza,Unspecified 61218 Given 01/21/2022 Pneumococcal Conjugate-Pr evnar 20 [id number] 37919 Given 03/19/2021 Pfizer Sars-Cov -2 (Cov-19) vacc 30mcg/0.3ML 12Y+ EMR Doc Only U-FLU Given 02/14/2021 Influenza,Unspecified 20025 Given 08/03/2020 Pfizer Sars-Cov -2 (Cov-19) vacc 30mcg/0.3ML 12Y+ EMR Doc Only 05264 Given 07/12/2020 Pfizer Sars-Cov -2 (Cov-19) vacc 30mcg/0.3ML 12Y+ EMR Doc Only U-FLU Given 01/17/2018 Influenza,Unspecified 80211 Given 12/18/2009 Tdap (Tetanus, diphtheria & acel. pertussis) Adacel or Boostrix 06285 Given 01/12/2004 Td (Tetanus & Diphtheria) [facility] [address] Refused 03/05/2022 Moderna Sars-Co v-2 (Covid-19) Vaccine, BiValent Booster 12y+ Vital Signs Date Vital Result Comment 12/28/2023 8:28am BP Systolic 118 mmHg BP Diastolic 88 mmHg Body Temperature 97.5 F Heart Rate 72 /min Respiratory Rate 20 /min Weight 218.00 lb Weight 98.885 kg Height 67.5 inches 5'7.50" BMI (Body Mass Index) 33.6 kg/m2 [place] Body Weight 148 lb 12/10/2023 1:29pm BP Systolic 124 mmHg BP Diastolic 76 mmHg Body Temperature 97.7 F Heart Rate 88 /min Respiratory Rate 18 /min Weight 216.38 lb Weight 98.148 kg Results Test Acquired Date Facility Test Result H/L Range Note Drug Monitor, Panel 1 W/Conf Urine 12/28/2023 [facility] [address] [place] [address] Amphetamines NEGATIVE ng/mL Normal <500 medMATCH Amphetamines [...] mg/dL Normal > or = 20.0 Specific [place] DNR Normal > or = 1.003 pH 5.2 Normal 4.5-9.0 Oxidant NEGATIVE g /mL Normal <200 Abnormal Specim en Validity Test: DNR Normal Prescribed Drugs, Medmatch(R) 12/28/2023 [facility] [address] [place] [address] medMATCH Summary (SEE NOTE) 1 Prescribed Drug 1 DNR Normal Prescribed Drug 2 DNR Normal Prescribed Drug 3 DNR Normal Prescribed Drug 4 DNR Normal Prescribed Drug 5 DNR Normal Prescribed Drug 6 DNR Normal Prescribed Drug 7 DNR Normal Prescribed Drug 8 DNR Normal Prescribed Drug 9 DNR Normal Prescribed Drug 10 DNR Normal Drug Monitoring Template 12/28/2023 [facility] [address] [place] [address] [phone] Notes and Comments (SEE NOTE) 2 Patient Histori job Report DNR Normal Laboratory test finding 12/28/2023 [facility] [address] [place] [address] Enhanced PDF Report [id number] SEE IMAGE 1 Summary not applicab le [...] needing Interpretation assistance, please contact us at [phone] ( ) M-F, 8am to 10pm EST Procedures Date Code Description Status 02/03/2024 49770 Manual Nursing Agency Manager 1/> Area 15 Min Each Region Completed 02/03/2024 17778 Therapy Proc 1/> Area 15Min Ea Completed 02/03/2024 91310 Electrical Stimulation Unatt ended Completed 02/03/2024 02910 Hot/Cold Pack Completed 02/01/2024 25286 Re-Eval Of PT Es tablished Plan Of Care 20Mins Face To Face PT/Fam Completed 02/01/2024 87231 Therapy Proc 1/> Area 15Min Ea Completed 12/23/2023 44386 Physical Therapy Evaluation Low Complexity Completed 12/23/2023 87888 Therapy Proc 1/> Area 15Min Ea Completed 12/10/2023 J1885 Injection Ketorolac Trometha mine Per 15 mg/.5cc (Toradol) Completed 12/10/2023 J1010 Inj, methylpred acetate 1 mg Completed 12/10/2023 49052 Inj Subcutaneous Or Intramus cular Completed Medical Devices Description No Information Available Encounters Type Date Location Provider Dx Diagnosis Office Visit 12/28/2023 8:30a Hiro Abraham PA-C M51.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, lumbar region Office Visit 12/10/2023 1:30p Hiro Abraham PA-C M51.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, lumbar region Office Visit 12/08/2023 1:00p Hiro Young MD M54.50 Low back pain, unspecified Assessments Date Code Description Provider 02/03/2024 M54.16 Radiculopathy, lumbar region Oren Welch, WMT 02/03/2024 M54.50 Low back pain, unspecified E katheryn Welch, DPT 02/03/2024 M79.605 Pain in left leg Oren schultz, DPT 02/03/2024 M79.604 Pain in right leg Oren jackson, DPT 02/01/2024 M54.16 Radiculopathy, lumbar region Oren Welch, DPT 02/01/2024 M54.50 Low back pain, unspecified E katheryn Welch, DPT 02/01/2024 M79.605 Pain in left leg Oren schultz, DPT 02/01/2024 M79.604 Pain in right leg Oren Pinedo sen, DPT 12/28/2023 M51.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 d isc disorders with radiculopathy, lumbar region Marzena Abraham PA-C 12/23/2023 M54.16 Radiculopathy, lumbar region Oren Welch, DPT 12/23/2023 M54.50 Low back pain, unspecified E katheryn Welch, DPT 12/23/2023 M79.605 Pain in left leg Oren Castillo en, DPT 12/23/2023 M79.604 Pain in right leg Oren Pinedo sen, DPT 12/10/2023 M51.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 d isc disorders with radiculopathy, lumbar region Marzena Abraham PA-C 12/08/2023 M54.50 Low back pain, unspecified M ramón Young MD Plan of Treatment 12/28/2023 - Marzena Abarham PA-C* M51.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 disc disorders with radiculopathy, lumbar region* New Medication:* Hydrocodone Bitartrate/Acetaminophen 5-325 mg - 1 by mouth every 4-6 hours as needed pain- initial treatment * Follow up:* MRI LS spine Functional Status Description No Information Available Mental Status Description No Information Available Referrals Refer to Reason for Referral Status Appt Ethan Foster [facility]/Neurosurgery He has areas with moderate to severe narrowing around the spinal canal. I would suggest if he is having pain that he see neurosurgery as next step. Closed 01/24/2024 DR. Jack Antonio [address] [place] [address] [place] [address] [phone]
--- OUTSIDE RECORDS SUMMARY | 2024-05-30 14:19 | External Medical Summary | Summary of Care ---
Author Name Unknown Organization [facility] Address [address] [place] [address] Phone [phone] Care Team Providers Care Negative Spotter Name Role Phone Kathia Duran Primary Care Provide r Reason for Visit * Reason Onset Date Comments Appointment 01/08/2024 Encounter Details Date Type Department Care Team (Late st Contact Info) Description 01/08/2024 Telephone Radiology, [address] [address] Rosaura Allen RT (R) Appointment Allergies Active Allergy Reactions Criticality Noted Date Comments Morphine And Codeine 03/09/2006 Hives Vancomycin 03/09/2006 Hives documented as of this encounter (statuses as of 01/08/2024) Medications Medication Sig Dispensed Refills Start Date End Date Status Ventolin HFA 108 (90 Base) MCG/ACT Inhalation Aerosol SolutionIndications :Exacerbation of asthma, unspecified asthma severity, unspecified whether persistent Inhale by mouth 2 Puffs every 4 hours as needed for Wheezing. 18 g 3 01/09/2022 Active Erythromycin 5 MG/GM Ophthalmic OintmentIndications :[place] eye disease of left eye Instill into [...] as of this encounter (statuses as of 01/08/2024) Active Problems Problem Noted Date Diagnosed Date RITCHIE (obstructive sleep apnea) 12/05/2021 documented as of this encounter (statuses as of 01/08/2024) Immunizations Name Administration Dates Next Due COVID-19 mRNA, LNP-s, No Pre serve, 2-Dose Series (Pfizer) 03/19/2021,08/03/2020,07/12/2020 Pneumococcal Conjugate Vacci ne, 20-valent (Vqwcjis39) 01/21/2022 Seasonal Influenza, PF, 6 M & [...] encounter Miscellaneous Notes * Telephone Encounter - Rosaura Allen RT (Dima) - 01/08/2024 3:43 PM EDT No implants documented in this encounter Plan of Treatment Upcoming Encounters Date Type Department Care Team (Late st Contact Info) Description 01/10/2024 3:30 PM EDT [address]ment [address]iology, [address] [place] [address] Health Maintenance Due Date Last Done Comments HIV Screening 06/07/1995 Hepatitis C Screening 1998 Hepatitis B Vaccine (1 of 3 - 19+ 3-dose series) 06/07/1999 Depression Screening 07/30/2018 07/30/2017 DTap/Tdap Vaccines (2 - Td or Tdap) 12/19/2019 12/18/2009, 01/12/2004 COVID-19 Vaccine ( - season) 2023 03/19/2021, 08/03/2020, 07/12/2020 Influenza [...] filedocumented as of this encounter Care Teams Negative Spotter Relationship Specialty Start Date End Date Kathia Duran CRNP [address] [place] [address] [place] [address] PCP - General Nurse Practitioner 06/10/22 documented as of this encounter
--- OUTSIDE RECORDS SUMMARY | 2024-05-30 14:19 | External Medical Summary | Continuity of Care Document ---
Author Name Unknown Organization [facility] Address [address] [facility], [place] [address] Phone [phone] Problems Active Problems Provider Date Obstructive sleep apnea syndrome Ezekiel rCuz Onset: 01/26/2022 Mild intermittent asthma Deonna Webster [...] SIG Qnty Indications Order ing Provider Date Qvweajatc85iv Tablets 1 by mouth every day M54.50 Minerva Young MD 12/08/2023 NebulizerMisc with supplies - use as directed; dx j45.901 1units J45.901 CICI Santiago 11/04/2022 Ipratropium [place]/Albuterol Sulfate0.5-2.5(3)mg/3ML Solution nebulize 1 unit every 6 hours as needed for wheezing. 90ml J45.901 Baldemar Oh DO 11/04/2022 Cyclobenzaprine SBF20hm Tablets take 1 tablet by mouth every 8 hours as needed for muscle spasms 20tabs M54.50 Oralia Obrien MD 03/05/2022 Ventolin XKX109(90Base) mcg/Act Aerosol 2 puffs by mouth every 4 hours as needed wheezing 1gm CICI Santiago History Medications Jnnlpzugo80gd Tablets 1 by mouth every day for 14 days 14tabs M54.50 Oralia Obrien MD 12/08/2023 - 12/10/2023 Medications Administered in Office Medication SIG Qnty Indications Ordering Provider Date Injection Ketorolac Trometha mine Per 15 mg/.5cc (Toradol)Injection Marzena Abraham PA-C 12/10/2023 Inj, methylpred acetate 1 mgInjection Marzena Abraham PA-C Injection Methylprednisolone Acetate 20 MGInjection Marzean Abraham PA-C 05/27/2023 Immunizations CPT Code Status Date Vaccine Lot # [id number] Given 03/05/2022 Tdap (Tetanus, diphtheria & acel. pertussis) Adacel or Boostrix [id number] U-FLU Given 01/21/2022 Influenza,Unspecified 38112 Given 01/21/2022 Pneumococcal Conjugate-Pr evnar 20 [id number] 15084 Given 03/19/2021 Pfizer Sars-Cov -2 (Cov-19) vacc 30mcg/0.3ML 12Y+ EMR Doc Only U-FLU Given 02/14/2021 Influenza,Unspecified 03866 Given 08/03/2020 Pfizer Sars-Cov -2 (Cov-19) vacc 30mcg/0.3ML 12Y+ EMR Doc Only 01862 Given 07/12/2020 Pfizer Sars-Cov -2 (Cov-19) vacc 30mcg/0.3ML 12Y+ EMR Doc Only U-FLU Given 01/17/2018 Influenza,Unspecified 81068 Given 12/18/2009 Tdap (Tetanus, diphtheria & acel. pertussis) Adacel or Boostrix 49018 Given 01/12/2004 Td (Tetanus & Diphtheria) [facility]iva 53046 Refused 03/05/2022 Moderna Sars-Co v-2 (Covid-19) Vaccine, [...] J1010 Inj, methylpred acetate 1 mg Completed 07/28/2023 49922 Remove Impact Cerumen Irriga tion Completed Medical Devices Description No Information Available Encounters Type Date Location Provider Dx Diagnosis Office Visit 12/10/2023 1:30p Hiro Abraham PA-C M51.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, lumbar region Office Visit 12/08/2023 1:00p Mobileyesenia Young MD M54.50 Low back pain, unspecified Office Visit 07/28/2023 6:15p MobileCICI Garcia H61.23 Impacted cerumen, bilateral Assessments Date Code Description Provider 12/10/2023 M51.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 d isc disorders with radiculopathy, lumbar region Marzena Abraham PA-C 12/08/2023 M54.50 Low back pain, unspecified Bessy Young MD 07/28/2023 H61.23 Impacted cerumen, bilateral CICI Santiago Plan of Treatment 12/10/2023 - Marzena Abraham PA-C* M51.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 disc disorders with radiculopathy, lumbar region* New Orders:* Physical Therapy Eval & Treat, Ordered: 12/10/23 * Follow up:* refer to PT downstairs Functional Status Description No Information Available Mental Status Description No Information Available Referrals Description No Information Available"
--- OUTSIDE RECORDS SUMMARY | 2024-05-30 14:19 | External Medical Summary | Summary of Care ---
Author Name Unknown Organization [facility] Address [address] [place] [address] Phone [phone] Care Team Providers Care Gasoline Plant Operator Name Role Phone Kathia Duran Primary Care Provide r Reason for Referral * Precert (Within 10 days (routine)) - Closed Specialty Diagnoses / Procedures Referred By Contac t Referred To Contact Radiology Diagnoses Intervertebral disc disorder with radiculopathy of lumbar region Procedures MRI L SPINE WO CONTRAST Requisition, External Radiology [address] [place] [address] Referral ID Status Reason Start Date Expiration Date V isits Requested Visits Authorized [id number] Closed Specialty Services Required 01/03/2024 02/02/2024 1 1 Reason for Visit * Precert (Within 10 days (routine)) - Closed Specialty Diagnoses / Procedures Referred By Contac t Referred To Contact Radiology Diagnoses Intervertebral disc disorder with radiculopathy of lumbar region Procedures MRI L SPINE WO CONTRAST Requisition, External Radiology [address] [place] [address] Referral ID Status Reason Start Date Expiration Date V isits Requested Visits Authorized [id number] Closed Specialty Services Required 01/03/2024 02/02/2024 1 1 Encounter Details Date Type Department Care Team (Latest Contact Info) Description 01/10/2024 3:03 PM EDT - 01/10/2024 11:59 PM EDT Hospital [address] Radiology[address] [address] Ar[address] Discharge Disposition: Home - Self Care Allergies Active Allergy Reactions Criticality Noted Date Comments Morphine And Codeine 03/09/2006 Hives Vancomycin 03/09/2006 Hives documented as of this encounter (statuses as of 01/11/2024) Medications Medication Sig Dispensed Refills Start Date End Date Status Ventolin HFA 108 (90 Base) MCG/ACT Inhalation Aerosol SolutionIndications :Exacerbation of asthma, unspecified asthma severity, unspecified whether persistent Inhale by mouth 2 Puffs every 4 hours as needed for Wheezing. 18 g 3 01/09/2022 Active Erythromycin 5 MG/GM Ophthalmic OintmentIndications :[place] eye disease of left eye Instill into [...] as of this encounter (statuses as of 01/11/2024) Active Problems Problem Noted Date Diagnosed Date RITCHIE (obstructive sleep apnea) 12/05/2021 documented as of this encounter (statuses as of 01/11/2024) Immunizations Name Administration Dates Next Due COVID-19 mRNA, LNP-s, No Pre serve, 2-Dose Series (Pfizer) 03/19/2021,08/03/2020,07/12/2020 Pneumococcal Conjugate Vacci ne, 20-valent ([id number]) 01/21/2022 Seasonal Influenza, PF, 6 M & [...] on file documented as of this encounter Plan of Treatment Health Maintenance [...] Procedure Name Priority Date/Time Associated Diagnosis Comments MRI L SPINE WO CONTRAST Routine 01/10/2024 3:38 PM EDT Intervertebral disc disorder with radiculopathy of lumbar region documented in this encounter Results * MRI L SPINE WO CONTRAST (01/10/2024 3:38 PM EDT) Anatomical Region Laterality Modality Vertebra, Lspine Magnetic Resona nce 01/11/2024 10:5 1 AM EDT Narrative 01/11/2024 10:49 AM EDT EXAM: MRI LUMBAR SPINE WITHOUT CONTRAST HISTORY: Intervertebral disc disorder -lumbar region COMPARISON: Radiographs of the lumbar spine dated 12/08/2023 TECHNIQUE: Multiplanar multisequence MRI of the lumbar spine without contrast was performed. FINDINGS: Vertebral body height and alignment are [...] marked narrowing of the spinal canal and foei-ll-mypheoed bilateral neuroforaminal stenosis. L3-L4: There is diffuse disc bulge with superimposed central disc extrusion and bilateral facet hypertrophy with associated marked narrowing of the spinal canal and moderate bilateral neuroforaminal stenosis. L4-L5: There is diffuse disc bulge with superimposed central disc extrusion and bilateral facet ligamentum flavum hypertrophy with associated mild narrowing of the spinal canal and moderate to marked bilateral neuroforaminal stenosis. L5-S1: There is diffuse disc [...] and moderate to marked bilateral neuroforaminal stenosis. Procedure Note Gautam Mcdonnell MD - 01/11/2024 EXAM: MRI LUMBAR SPINE WITHOUT CONTRAST HISTORY: Intervertebral disc disorder -lumbar region COMPARISON: Radiographs of the lumbar spine dated 12/08/2023 TECHNIQUE: Multiplanar multisequence MRI of the lumbar spine without contrast wasperformed. FINDINGS: Vertebral body height and alignment are maintained. There are Modic typedegenerative signal changes without worrisome bone marrow signalabnormality. The lumbar pedicles appear congenitally shortened. There is no spinal cord signal abnormality or cauda equina thickening.The conus medullaris terminates at the L1 level. T12-L1: No significant degenerative disc disease or spinal canal orneuroforaminal stenosis. L1-L2: There is diffuse disc bulge and bilateral facet and ligamentumflavum hypertrophy with associated mild narrowing of the spinal canal andmild bilateral neuroforaminal stenosis. L2-L3: There is diffuse disc bulge with superimposed central discextrusion and bilateral facet hypertrophy with associated moderate tomarked narrowing of the spinal canal and sgup-xz-[id number] bilateralneuroforaminal stenosis. L3-L4: There is diffuse disc bulge with superimposed central discextrusion and bilateral facet hypertrophy with associated marked narrowingof the spinal canal and moderate bilateral neuroforaminal stenosis. L4-L5: There is diffuse disc bulge with superimposed central discextrusion and bilateral facet ligamentum flavum hypertrophy withassociated mild narrowing of the spinal canal and moderate to markedbilateral neuroforaminal stenosis. L5-S1: There is diffuse disc bulge with superimposed central discextrusion and bilateral facet hypertrophy with associated mild narrowingof the spinal canal and marked bilateral neuroforaminal stenosis. The visualized paravertebral musculature is unremarkable. IMPRESSION: Multilevel degenerative disc disease is seen throughout the lumbar spine,resulting in areas of moderate to marked narrowing of the spinal canal andmoderate to marked bilateral neuroforaminal stenosis. Marzena Abraham PA-C RAD MRI-MRA documented in this encounter Visit Diagnoses Diagnosis Intervertebral disc disorder with radiculopathy of lumbar region Thoracic or lumbosacral neuritis or radiculitis, unspecified documented in this encounter Care Teams Gasoline Plant Operator Relationship Specialty Start Date End Date Kathia Duran CRNP [address] [facility] [place] [address] PCP - General Nurse Practitioner 06/10/22 documented as of this encounter
--- OUTSIDE RECORDS SUMMARY | 2024-05-30 14:19 | External Medical Summary | Summary of Care ---
Author Name Unknown Organization [facility] Address [address] [place] [address] Phone [phone] Care Team Providers Care Adjunct Spanish Instructor Name Role Phone Kathia Duran Primary Care Provide r Reason for Referral * Evaluate & Treat - Unlimited Visits (Within 30 days (routine)) - Authorized Specialty Diagnoses / Procedures Referred By Tao bruner Referred To Contact Pain Management / Pain Medicine Diagnoses Radiculopathy, lumbar region Edson Brantley MD [address] [place] [address] Referral ID Status Reason Start Date Expiration Date Visits Requested Visits Authorized [id number] Authorized Specialty Services Required 4 [phone] Question Answer Referral Priority Within 30 days (routine) Where should this appointment be scheduled? [facility] Reason for referral? Interventional Pain Management - (Injection) What condition is the patient being referred for? Lumbar Radiculopathy What is the preferred location to have this test performed? [facility] Comments Patient Name: Eamon Rios Date of : 1980 Department Phone Number: MRI or CT (if unable to have a MRI) is recommended if any of the following apply: 1. Patient has neck or back pain with radiation to extremities. A previous MRI will be accepted if symptoms unchanged since prior MRI. 2. Spinal surgery since last MRI. If yes, order a MRI with and without contrast. 3. Hx or ongoing cancer treatment. Patient will need spine x-ray (Ap/Lat) for axial neck or back pain if not done previously. Fax No. [facility] [phone] or contact hotel front desk clerk [phone] Fax No. [facility] [phone] or contact hotel front desk clerk [phone] Fax No. [facility] [phone] or contact hotel front desk clerk [phone] Encounter Details Date Type Department Care Team (Late st Contact Info) Description 01/26/2024 Orders Only Access Center, [place] [facility] [address] *DO NOT REMOVE THIS DEPARTMENT* [place] [id number] Edson Brantley MD [address] [place], [place] [id number] Radiculopathy, lumbar region* Allergies Active Allergy Reactions Criticality Noted Date Comments Morphine And Codeine 03/09/2006 Hives Vancomycin 03/09/2006 Hives documented as of this encounter (statuses as of 01/26/2024) Medications Medication Sig Dispensed Refills Start Date End Date Status Ventolin HFA 108 (90 Base) MCG/ACT Inhalation Aerosol SolutionIndications :Exacerbation of asthma, unspecified asthma severity, unspecified whether persistent Inhale by mouth 2 Puffs every 4 hours as needed for Wheezing. 18 g 3 01/09/2022 Active Erythromycin 5 MG/GM Ophthalmic OintmentIndications :[place] eye disease of left eye Instill into [...] as of this encounter (statuses as of 01/26/2024) Active Problems Problem Noted Date Diagnosed Date RITCHIE (obstructive sleep apnea) 12/05/2021 documented as of this encounter (statuses as of 01/26/2024) Immunizations Name Administration Dates Next Due COVID-19 mRNA, LNP-s, No Pre serve, 2-Dose Series (Pfizer) 03/19/2021,08/03/2020,07/12/2020 Pneumococcal Conjugate Vacci ne, 20-valent ([id number]) 01/21/2022 Seasonal Influenza, PF, 6 M & [...] as of this encounter Plan of Treatment Upcoming Encounters Date Type Department Care Team (Late st Contact Info) Description 01/27/2024 12:40 PM EDT Immunization Ancillary, [place] [address] [place] [address] [place] [address] [place] [address] Scheduled Referrals Name Type Priority Associated Diagnoses Orde r Schedule PAIN MEDICINE REFERRAL OP Referral Within 30 days (routine) Radiculopathy, lumbar region Ordered: 01/26/2024 Health Maintenance Due Date Last Done Comments [...] Not on filedocumented as of this encounter Visit Diagnoses Diagnosis Radiculopathy, lumbar region- Primary Thoracic or lumbosacral neuritis or radiculitis, unspecified documented in this encounter Care Teams Adjunct Spanish Instructor Relationship Specialty Start Date End Date Kathia Duran CRNP [address] [place] [address] [place] [address] PCP - General Nurse Practitioner 06/10/22 documented as of this encounter
--- OUTSIDE RECORDS SUMMARY | 2024-05-30 14:19 | External Medical Summary | Continuity of Care Document ---
Author Name Unknown Organization [facility] Address [address] [facility], [place] [address] Phone [phone] Problems Active Problems Provider Date Obstructive sleep [...] 8 hours prn 90anil Oh DO 12/23/2023 [id number] Capsules 1 by mouth every day day 1, 1 by mouth twice a day day 2, then 1 by mouth three times a day 90anil Oh DO 12/23/2023 [id number] Tablets 1 by mouth every day 30tabs M54.50 Baldemar Oh DO 12/08/2023 NebulizerMisc with supplies - use as directed; dx j45.901 1units J45.901 CICI Santiago 11/04/2022 Ipratropium Quitman/Albuterol Sulfate0.5-2.5(3)mg/3ML Solution nebulize 1 unit every 6 hours as needed for wheezing. 90ml J45.901 Baldemar Oh DO 11/04/2022 Cyclobenzaprine EWH88vq Tablets take 1 tablet by mouth every 8 hours as needed for muscle spasms 20tabs M54.50 Oralia Obrien MD 03/05/2022 Ventolin DSW587(90Base) mcg/Act Aerosol 2 puffs by mouth every 4 hours as needed wheezing 1gm CICI Santiago History Medications Bmjajpufp56ju Tablets 1 by mouth every day for [...] CPT Code Status Date Vaccine Lot # [id number] Given 03/05/2022 Tdap (Tetanus, diphtheria & acel. pertussis) Adacel or Boostrix [id number] U-FLU Given 01/21/2022 Influenza,Unspecified [id number] Given 01/21/2022 Pneumococcal Conjugate-Pr evnar 20 [id number] Given 03/19/2021 Pfizer Sars-Cov -2 (Cov-19) vacc 30mcg/0.3ML 12Y+ EMR Doc Only U-FLU Given 02/14/2021 Influenza,Unspecified 84915 Given 08/03/2020 Pfizer Sars-Cov -2 (Cov-19) vacc 30mcg/0.3ML 12Y+ EMR Doc Only [id number] Given 07/12/2020 Pfizer Sars-Cov -2 (Cov-19) vacc 30mcg/0.3ML 12Y+ EMR Doc Only U-FLU Given 01/17/2018 Influenza,Unspecified 59489 Given 12/18/2009 Tdap (Tetanus, diphtheria & acel. pertussis) Adacel or Boostrix 88373 Given 01/12/2004 Td (Tetanus & Diphtheria) [facility] [id number] Refused 03/05/2022 Moderna Sars-Co v-2 (Covid-19) Vaccine, BiValent Booster 12y+ Vital Signs Date Vital Result Comment 12/28/2023 8:28am BP Systolic 118 mmHg BP Diastolic 88 mmHg Body Temperature 97.5 F Heart Rate 72 /min Respiratory Rate 20 /min Weight 218.00 lb Weight 98.885 kg Height 67.5 inches 5'7.50" BMI (Body Mass Index) 33.6 kg/m2 Vernal Body Weight 148 lb 12/10/2023 1:29pm BP Systolic 124 mmHg BP Diastolic 76 mmHg Body Temperature 97.7 F Heart Rate 88 /min Respiratory Rate 18 /min Weight 216.38 lb Weight 98.148 kg Results Test Acquired Date Facility Test Result H/L Range N ote Laboratory test finding 12/28/[address] [facility] [place] [address] [phone] Prescribed Drugs, [facility](R) <pending> Procedures Date Code Description Status 12/10/2023 J1885 Injection Ketorolac Trometha mine Per 15 mg/.5cc (Toradol) Completed 12/10/2023 J1010 Inj, methylpred acetate 1 mg Completed 12/10/2023 35304 Inj Subcutaneous Or Intramus cular Completed 07/28/2023 95127 Remove Impact Cerumen Irriga tion Completed Medical [...] back pain, unspecified Office Visit 07/28/2023 6:15p [facility] CICI Santiago H61.23 Impacted cerumen, bilateral Assessments [...]
--- OUTSIDE RECORDS SUMMARY | 2024-05-30 14:19 | External Medical Summary | Summary of Care ---
Author Name Unknown Organization [facility] Address [address] [place] [address] Phone [phone] Care Team Providers Care National Accounts Sales Name Role Phone Kathia Duran Primary Care Provide r Reason for Referral * Precert (Within 10 days (routine)) - Authorized Specialty Diagnoses / Procedures Referred By Tao bruner Referred To Contact Pain Medicine Diagnoses Lumbar radicular pain Spinal stenosis of lumbar region with neurogenic claudication Procedures INJECT DX/THER SUBSTANCE INTERLAMINAR LUMBAR/SACRAL W IMAGE GUIDE Adam Kirby CRNP [address] [place] [address] Phone: tel: fax: Referral ID Status Reason Start Date Expiration Date V isits Requested Visits Authorized [id number] Authorized 02/22/[phone] Reason for Visit * Reason Comments NEW PATIENT Radiculopathy, Lumba r Region Back Pain midline lower back/c occyx. radiates bilaterally into buttock and into L thigh. posterior aspect of LE. reports burning. constant pain. denies trauma. Onset: 12/05/23. * Evaluate & Treat - Unlimited Visits (Within 30 days (routine)) - Authorized Specialty Diagnoses / Procedures Referred By Contjacquelin t Referred To Contact Pain Management / Pain Medicine Diagnoses Radiculopathy, lumbar region Edson Brantley MD [address] [place] [address] Phone: tel: fax: Referral ID Status Reason Start Date Expiration Date Visits Requested Visits Authorized [id number] Authorized Specialty Services Required 4 [phone] Encounter Details Date Type Department Care Team (Late st Contact Info) Description 02/08/2024 1:00 PM EST Office Visit [facility] Center, [facility] [address] [place] [address] [facility] [address] [facility] [address] Lumbar radicular pain*; Spinal stenosis of lumbar region with neurogenic claudication Allergies Active Allergy Reactions Criticality Noted Date Comments Morphine And Codeine 03/09/2006 Hives Pollen Extract 02/08/2024 Birch Vancomycin 03/09/2006 Hives documented as of this encounter (statuses as of 02/09/2024) Medications Ventolin HFA 108 (90 Base) MCG/ACT Inhalation Aerosol SolutionIndicati ons:Exacerbation of asthma, unspecified asthma severity, unspecified whether persistent Inhale by mouth 2 Puffs every 4 hours as needed for Wheezing. 18 g 3 2 Active Erythromycin 5 MG/GM Ophthalmic OintmentIndicati ons:[place] eye disease of left eye Instill into eye at bedtime . 3.5 g 2 Active Additional Information Patient not taking.Reported on 01/21/2022 tiZANidine HCl 2 MG Oral Capsule (Zanaflex) Take 1 Capsule by mouth 3 times a day as needed for Muscle spasms. 24 Capsule 4 Active Additional Information Patient not taking.Reported on 02/08/2024 oxyCODONE-Acetam inophen 5-325 MG Oral Tablet (Percocet) [...] as of this encounter (statuses as of 02/09/2024) Active Problems Problem Noted Date Diagnosed Date RITCHIE (obstructive sleep apnea) 12/05/2021 documented as of this encounter (statuses as of 02/09/2024) Immunizations Name Administration Dates Next Due COVID-19 mRNA, LNP-s, No Pre serve, 2-Dose Series (Reissued) 03/19/2021,08/03/2020,07/12/2020 Pneumococcal Conjugate Vacci ne, 20-valent (Glmcohh51) 01/21/2022 Seasonal Influenza, PF, 6 M & above, IM , (FluLaval or Fluzone) 01/21/2022,02/14/2021,01/17/2018 TD - Tetanus/Diptheria (ADULT) 01/12/2004 TDAP, Age 7 and older, IM (Adacel) 12/18/2009 documented as of this encounter Social History Tobacco Use Types Packs/Day Years Used Date Smoking Tobacco: Never Smokeless Tobacco: Current Snuff Tobacco Cessation:Ready to Q uit: No; Counseling Given: No Comments:approx 1 can/day- 01/02/20 Alcohol Use Standard Drinks/Week Comments Yes 0 [...] Sign Reading Time Taken Comments Blood Pressure 144/82 02/08/2024 1:18 PM EST Pulse 89 02/08/2024 1:18 PM EST Temperature 36.4 C (97.5 F) 02/08/2024 1:18 PM ES T Respiratory Rate - - Oxygen Saturation 99% 02/08/2024 1:18 PM EST Inhaled Oxygen Concentration - - Weight - - Height - - Body Mass Index - - documented in this encounter Progress Notes * Adam Kirby CRNP - 02/08/2024 12:51 PM EST GENERAL HISTORY & PHYSICAL EXAMINATION - Anesthesia and Pain Service [facility] Name: Eamon Rios Location: [facility], [facility] REFERRING PHYSICIAN: Edson Brantley MD Thank you for referring Eamon Rios. Nursing Notes: Pako Fernandez MA 02/08/24 1320 Signed Chief Complaint Patient presents with NEW PATIENT Radiculopathy, Lumbar Region Back Pain midline lower back/coccyx. radiates bilaterally into buttock and into L thigh. posterior aspect of LE. reports burning. constant pain. denies trauma. Onset: 12/05/23. Imagin01/10/24 MRI L-Spine, 12/08/23 XR L-Spine Previous Surgeries: no neck/back surg Previous Injections: Shoulder (yrs ago) PT: 2023 CPRS (currently- 4 sessions) Aggravating Factors/Limitations: Alleviating factors: Disability Score Questionnaire- see attachment Blood Thinners: none Pain medications: Hydrocodone, Gabapentin, Meloxicam, Tizanidine Diabetic: No Consults: none. Referred By: Dr. Brantley. CHIEF COMPLAINT: He complains of Back pain. Most recent vital signs: BP 144/82 (BP Site: Left Arm, BP Position: Sitting, BP Cuff Size: Large) |Pulse 89 | Temp 36.4 C (97.5 F) (Temporal Artery) | SpO2 99% HPI: Eamon Rios is a 43 year [...] mouth 3 times a day as needed forMuscle spasms. (Patient not taking: Reported on 02/08/2024) 24 Capsule 0 oxyCODONE-Acetaminophen 5-325 MG Oral Tablet (Percocet) Take 1 Tablet by mouth at bedtime as needed for Pain, Severe. (Patient not taking: Reported on [...] marked narrowing of the spinal canal and ntqc-jq-tvchehwa bilateral neuroforaminal stenosis. L3-L4: There is diffuse [...] date: 02/22/2024 - Please schedule CARA L5/S1 PRIMARY CARE PHYSICIAN: CICI Arshad CRNP 02/08/2024 12:51 PM documented in this encounter Nursing Notes * Pako Fernandez MA - 02/08/2024 1:16 PM EST Chief Complaint Patient presents with NEW PATIENT Radiculopathy, Lumbar Region Back Pain midline lower back/coccyx. radiates bilaterally into buttock and into L thigh. posterior aspect of LE. reports burning. constant pain. denies trauma. Onset: 12/05/23. Imagin01/10/24 MRI L-Spine, 12/08/23 XR L-Spine Previous Surgeries: no neck/back surg Previous Injections: Shoulder (yrs ago) PT: 2023 CPRS (currently- 4 sessions) Aggravating Factors/Limitations: Alleviating factors: Disability Score Questionnaire- see attachment Blood Thinners: none Pain medications: Hydrocodone, Gabapentin, Meloxicam, Tizanidine Diabetic: No Consults: none. Referred By: Dr. Brantley. documented in this encounter Plan of Treatment Upcoming Encounters Date Type Department Care Team (Latest Contact Info) Description 02/28/2024 1:59 PM EST Hospital Encounter [facility], Operating Room [facility] [address] [place] [phone] Juan Pablo Portillo, [address] [place] [phone] 02/28/2024 1:59 PM EST - 02/28/2024 2:19 PM EST Surgery OR [facility], Operating Room [address] [phone] Juan Pablo Portillo, [address] [id number] INJECTION SPINE LUMBAR OR SACRAL 03/30/2024 7:30 AM EST Office Visit [facility] Pain Center, [address] [address] Adam Kirby CRNP [address] [place] [address] Scheduled Orders Name Type Priority Associated Diagnoses Orde r Schedule INJECT DX/THER SUBSTANCE INTERLAMINAR LUMBAR/SACRAL W IMAGE GUIDE Procedures Routine Lumbar radicular pain Spinal stenosis of lumbar region with neurogenic claudication Expected: 02/22/2024 (Approximate), Expires: 03/09/2025 Scheduled Procedures Name Priority Associated Diagnoses Date/Ti me INJECTION SPINE LUMBAR OR SACRAL Lumbar radicular pain 02/28/2024 1:59 PM EST Health Maintenance Due Date Last Done Comments [...] as of this encounter Visit Diagnoses Diagnosis Lumbar radicular pain- Primary Thoracic or lumbosacral neuritis or radiculitis, unspecified Spinal stenosis of lumbar region with neurogenic claudication Spinal stenosis, lumbar region, with neurogenic claudication Lumbar radicular pain Thoracic or lumbosacral neuritis or radiculitis, unspecified documented in this encounter Care Teams National Accounts Sales Relationship Specialty Start Date End Date Kathia Duran CRNP [address] [facility] [place] [address] PCP - General Nurse Practitioner 06/10/22 documented as of this encounter"
--- OUTSIDE RECORDS SUMMARY | 2024-05-30 14:19 | External Medical Summary | Continuity of Care Document ---
Author Name Unknown Organization [facility] Address [address] [place] [address] Phone [phone] Problems Active Problems Provider Date Obstructive sleep [...] hours prn 90caps Baldemar Oh DO 12/23/2023 [id number] Capsules 1 by mouth every day day 1, 1 by mouth twice a day day 2, then 1 by mouth three times a day 90caps Baldemar Oh, 12/23/2023 Dareikgmx66ve Tablets 1 by mouth every day 30tabs M54.50 Baldemar Oh, 12/08/2023 NebulizerMisc with supplies - use as directed; dx j45.901 1units J45.901 CICI Santiago 11/04/2022 Ipratropium [place]/Albuterol Sulfate0.5-2.5(3)mg/3M L Solution nebulize 1 unit every 6 hours as needed for wheezing. 90ml J45.901 Baldemar Oh, 11/04/2022 Ventolin YZQ166(90Base) mcg/Act Aerosol 2 puffs by mouth every 4 hours as needed wheezing 1gm CICI Santiago History Medications Nemlclsto21pp Tablets 1 by mouth every day for [...] CPT Code Status Date Vaccine Lot # [id number] Given 03/05/2022 Tdap (Tetanus, diphtheria & acel. pertussis) Adacel or Boostrix [id number] U-FLU Given 01/21/2022 Influenza,Unspecified 30943 Given 01/21/2022 Pneumococcal Conjugate-Pr evnar 20 [id number] 90484 Given 03/19/2021 Pfizer Sars-Cov -2 (Cov-19) vacc 30mcg/0.3ML 12Y+ EMR Doc Only U-FLU Given 02/14/2021 Influenza,Unspecified 48399 Given 08/03/2020 Pfizer Sars-Cov -2 (Cov-19) vacc 30mcg/0.3ML 12Y+ EMR Doc Only 94814 Given 07/12/2020 Pfizer Sars-Cov -2 (Cov-19) vacc 30mcg/0.3ML 12Y+ EMR Doc Only U-FLU Given 01/17/2018 Influenza,Unspecified 13465 Given 12/18/2009 Tdap (Tetanus, diphtheria & acel. pertussis) Adacel or Boostrix 75273 Given 01/12/2004 Td (Tetanus & Diphtheria) [facility] 08958 Refused 03/05/2022 Moderna Sars-Co v-2 (Covid-19) Vaccine, BiValent Booster 12y+ Vital Signs Date Vital Result Comment 12/28/2023 8:28am BP Systolic 118 mmHg BP Diastolic 88 mmHg Body Temperature 97.5 F Heart Rate 72 /min Respiratory Rate 20 /min Weight 218.00 lb Weight 98.885 kg Height 67.5 inches 5'7.50" BMI (Body Mass Index) 33.6 kg/m2 [place] Body Weight 148 lb 12/10/2023 1:29pm BP Systolic 124 mmHg BP Diastolic 76 mmHg Body Temperature 97.7 F Heart Rate 88 /min Respiratory Rate 18 /min Weight 216.38 lb Weight 98.148 kg Results Test Acquired Date Facility Test Result H/L Range Note Drug Monitor, Panel 1 W/Conf Urine 12/28/2023 [facility] [address] [place] [address] [phone] Amphetamines NEGATIVE ng/mL Normal <500 medMATCH Amphetamines [...] mg/dL Normal > or = 20.0 Specific [place] DNR Normal > or = 1.003 pH 5.2 Normal 4.5-9.0 Oxidant NEGATIVE g /mL Normal <200 Abnormal Specim en Validity Test: DNR Normal Prescribed Drugs, Medmatch(R) 12/28/[address] [facility] [address] [place] [address] medMATCH Summary (SEE NOTE) 1 Prescribed Drug 1 DNR Normal Prescribed Drug 2 DNR Normal Prescribed Drug 3 DNR Normal Prescribed Drug 4 DNR Normal Prescribed Drug 5 DNR Normal Prescribed Drug 6 DNR Normal Prescribed Drug 7 DNR Normal Prescribed Drug 8 DNR Normal Prescribed Drug 9 DNR Normal Prescribed Drug 10 DNR Normal Drug Monitoring Template 12/28/[address] [facility] [address] [place] [address] Notes and Comments (SEE NOTE) 2 Patient Histori job Report DNR Normal Laboratory test finding 12/28/[address] [facility] [address] [place] [address] [phone] Enhanced PDF Report [id number] SEE IMAGE 1 Summary not applicab le [...] needing Interpretation assistance, please contact us at [phone] ( ) M-F, 8am to 10pm EST Procedures Date Code Description Status 02/08/2024 06452 Manual Nursing Program Coordinator 1/> Area 15 Min Each Region Completed 02/08/2024 82759 Therapy Proc, Neuromuscular Reeducation Of Movement Completed 02/08/2024 70977 Therapy Proc 1/> Area 15Min Ea Completed 02/03/2024 76841 Manual Nursing Program Coordinator 1/> Area 15 Min Each Region Completed 02/03/2024 65763 Therapy Proc 1/> Area 15Min Ea Completed 02/03/2024 16879 Electrical Stimulation Unatt ended Completed 02/03/2024 91150 Hot/Cold Pack Completed 02/01/2024 16284 Re-Eval Of PT Es tablished Plan Of Care 20Mins Face To Face PT/Fam Completed 02/01/2024 18172 Therapy Proc 1/> Area 15Min Ea Completed 12/23/2023 90608 Physical Therapy Evaluation Low Complexity Completed 12/23/2023 80763 Therapy Proc 1/> Area 15Min Ea Completed 12/10/2023 J1885 Injection Ketorolac Trometha mine Per 15 mg/.5cc (Toradol) Completed 12/10/2023 J1010 Inj, methylpred acetate 1 mg Completed 12/10/2023 05805 Inj Subcutaneous Or Intramus cular Completed Medical [...] pain, unspecified Assessments Date Code Description Provider 02/08/2024 M54.16 Radiculopathy, lumbar region Oren Welch, WMT 02/08/2024 M54.50 Low back pain, unspecified E katheryn Welch, JAZMYNE 02/08/2024 M79.605 Pain in left leg Oren schultz, DPT 02/08/2024 M79.604 Pain in right leg Oren jackson, WMT 02/03/2024 M54.16 Radiculopathy, lumbar region Oren Welch, DPT 02/03/2024 M54.50 Low back pain, unspecified E katheryn Welch, DPT 02/03/2024 M79.605 Pain in left leg Oren Castillo en, DPT 02/03/2024 M79.604 Pain in right leg Oren Pinedo sen, DPT 02/01/2024 M54.16 Radiculopathy, lumbar region Oren Welch, DPT 02/01/2024 M54.50 Low back pain, unspecified E katheryn Welch, DPT 02/01/2024 M79.605 Pain in left leg Oren Castillo en, DPT 02/01/2024 M79.604 Pain in right leg Oren iPnedo sen, DPT 12/28/2023 M51.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 d isc [...] MD Plan of Treatment 12/28/2023 - Marzena Abrahma PA-C* M51.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 I would suggest if he is having pain that he see neurosurgery as next step. Closed 01/24/2024 DR. Jack Antonio [address] [place] [address] [id number] [phone]
--- OUTSIDE RECORDS SUMMARY | 2024-05-30 14:19 | External Medical Summary | Continuity of Care Document ---
Author Name Unknown Organization [place] Address [address] [facility], [place] [address] Phone [phone] Problems Active Problems Provider Date Obstructive sleep [...] 8 hours prn 90anil Oh DO 12/23/2023 Rjvjdimod847iy Capsules 1 by mouth every day day 1, 1 by mouth twice a day day 2, then 1 by mouth three times a day 90anil Oh DO 12/23/2023 Ufhdyfnfz78ac Tablets 1 by mouth every day 30tabs M54.50 Baldemar Oh DO 12/08/2023 NebulizerMisc with supplies - use as directed; dx j45.901 1units J45.901 CICI Santiago 11/04/2022 Ipratropium [place]/Albuterol Sulfate0.5-2.5(3)mg/3ML Solution nebulize 1 unit every 6 hours as needed for wheezing. 90ml J45.901 Baldemar Oh DO 11/04/2022 Cyclobenzaprine NUQ70es Tablets take 1 tablet by mouth every 8 hours as needed for muscle spasms 20tabs M54.50 Oralia Obrien MD 03/05/2022 Ventolin ORX000(90Base) mcg/Act Aerosol 2 puffs by mouth every 4 hours as needed wheezing 1gm CICI Santiago History Medications Etijyzqnf28yt Tablets 1 by mouth every day for [...] CPT Code Status Date Vaccine Lot # [id number] Given 03/05/2022 Tdap (Tetanus, diphtheria & acel. pertussis) Adacel or Boostrix [id number] U-FLU Given 01/21/2022 Influenza,Unspecified 86265 Given 01/21/2022 Pneumococcal Conjugate-Pr evnar 20 [id number] 46273 Given 03/19/2021 Pfizer Sars-Cov -2 (Cov-19) vacc 30mcg/0.3ML 12Y+ EMR Doc Only U-FLU Given 02/14/2021 Influenza,Unspecified 73673 Given 08/03/2020 Pfizer Sars-Cov -2 (Cov-19) vacc 30mcg/0.3ML 12Y+ EMR Doc Only 26357 Given 07/12/2020 Pfizer Sars-Cov -2 (Cov-19) vacc 30mcg/0.3ML 12Y+ EMR Doc Only U-FLU Given 01/17/2018 Influenza,Unspecified 45760 Given 12/18/2009 Tdap (Tetanus, diphtheria & acel. pertussis) Adacel or Boostrix 54447 Given 01/12/2004 Td (Tetanus & Diphtheria) Teniva 74401 Refused 03/05/2022 Moderna Sars-Co v-2 (Covid-19) Vaccine, BiValent Booster 12y+ Vital Signs Date Vital Result Comment 12/28/2023 8:28am BP Systolic 118 mmHg BP Diastolic 88 mmHg Body Temperature 97.5 F Heart Rate 72 /min Respiratory Rate 20 /min Weight 218.00 lb Weight 98.885 kg Height 67.5 inches 5'7.50" BMI (Body Mass Index) 33.6 kg/m2 [place] Body Weight 148 lb 12/10/2023 1:29pm BP Systolic 124 mmHg BP Diastolic 76 mmHg Body Temperature 97.7 F Heart Rate 88 /min Respiratory Rate 18 /min Weight 216.38 lb Weight 98.148 kg Results Test Acquired Date Facility Test Result H/L Range Note Drug Monitor, Panel 1 W/Conf Urine 12/28/2023 [email or web address] [address] [place] [address] [place] [address] Amphetamines NEGATIVE ng/mL Normal <500 medMATCH Amphetamines [...] mg/dL Normal > or = 20.0 Specific [place] DNR Normal > or = 1.003 pH 5.2 Normal 4.5-9.0 Oxidant NEGATIVE g /mL Normal <200 Abnormal Specim en Validity Test: DNR Normal Prescribed Drugs, Medmatch(R) 12/28/[address]23 [facility] [address] [place] [address] [phone] medMATCH Summary (SEE NOTE) 1 Prescribed Drug 1 DNR Normal Prescribed Drug 2 DNR Normal Prescribed Drug 3 DNR Normal Prescribed Drug 4 DNR Normal Prescribed Drug 5 DNR Normal Prescribed Drug 6 DNR Normal Prescribed Drug 7 DNR Normal Prescribed Drug 8 DNR Normal Prescribed Drug 9 DNR Normal Prescribed Drug 10 DNR Normal Drug Monitoring Template 12/28/20[address] [facility] [address] [place] [address] [phone] Notes and Comments (SEE NOTE) 2 Patient Histori job Report DNR Normal Laboratory test finding 12/28/2023 [facility] [address] [place] [address] [phone] Enhanced PDF Report [id number] SEE IMAGE 1 Summary not applicab le [...] needing Interpretation assistance, please contact us at [phone] ( ) M-F, 8am to 10pm EST Procedures Date Code Description Status 12/23/2023 85445 Physical Therapy Evaluation Low Complexity Completed 12/23/2023 61349 Therapy Proc 1/> Area 15Min Ea Completed 12/10/2023 J1885 Injection Ketorolac Trometha mine Per 15 mg/.5cc (Toradol) Completed 12/10/2023 J1010 Inj, methylpred acetate 1 mg Completed 12/10/2023 42237 Inj Subcutaneous Or Intramus cular Completed 07/28/2023 83653 Remove Impact Cerumen Irriga tion Completed Medical Devices Description No Information Available Encounters Type Date Location Provider Dx Diagnosis Office Visit 12/28/2023 8:30a [place] Marzena Abraham PA-C M51.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, lumbar region Office Visit 12/10/2023 1:30p Hiro Abraham PA-C M51.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
--- OUTSIDE RECORDS SUMMARY | 2024-05-30 14:20 | External Medical Summary | Continuity of Care Document ---
Author Name Unknown Organization [place] Address [address] [facility], [place] [address] Phone [phone] Problems Active Problems Provider Date Obstructive sleep [...] SIG Qnty Indications Order ing Provider Date Rqeonhnfp69tt Tablets 1 by mouth every day M54.50 Minerva Young MD 12/08/2023 NebulizerMisc with supplies - use as directed; dx j45.901 1units J45.901 CICI Santiago 11/04/2022 Ipratropium [place]/Albuterol Sulfate0.5-2.5(3)mg/3ML Solution nebulize 1 unit every 6 hours as needed for wheezing. 90ml J45.901 Baldemar Oh DO 11/04/2022 Cyclobenzaprine VBL71ae Tablets take 1 tablet by mouth every 8 hours as needed for muscle spasms 20tabs M54.50 Oralia Obrien MD 03/05/2022 Ventolin CGV429(90Base) mcg/Act Aerosol 2 puffs by mouth every 4 hours as needed wheezing 1gm CICI Santiago History Medications Gvqwodkxf82tk Tablets 1 by mouth every day for [...] CPT Code Status Date Vaccine Lot # 23865 Given 03/05/2022 Tdap (Tetanus, diphtheria & acel. pertussis) Adacel or Boostrix [id number] U-FLU Given 01/21/2022 Influenza,Unspecified 89215 Given 01/21/2022 Pneumococcal Conjugate-Pr evnar 20 [id number] 66958 Given 03/19/2021 Pfizer Sars-Cov -2 (Cov-19) vacc 30mcg/0.3ML 12Y+ EMR Doc Only U-FLU Given 02/14/2021 Influenza,Unspecified 66167 Given 08/03/2020 Pfizer Sars-Cov -2 (Cov-19) vacc 30mcg/0.3ML 12Y+ EMR Doc Only 15196 Given 07/12/2020 Pfizer Sars-Cov -2 (Cov-19) vacc 30mcg/0.3ML 12Y+ EMR Doc Only U-FLU Given 01/17/2018 Influenza,Unspecified 82669 Given 12/18/2009 Tdap (Tetanus, diphtheria & acel. pertussis) Adacel or Boostrix 17933 Given 01/12/2004 Td (Tetanus & Diphtheria) Teniva 56662 Refused 03/05/2022 Moderna Sars-Co v-2 (Covid-19) Vaccine, [...] Inj, methylpred acetate 1 mg Completed 07/28/2023 58846 Remove Impact Cerumen Irriga tion Completed Medical Devices Description No Information Available Encounters Type Date Location Provider Dx Diagnosis Office Visit 12/10/2023 1:30p Hiro Abraham PA-C M51.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, lumbar region Office Visit 12/08/2023 1:[place]p [place] M54.50 Low back pain, unspecified Office Visit 07/28/2023 6:15p [place] H61.23 Impacted cerumen, bilateral Assessments Date [...]
--- OUTSIDE RECORDS SUMMARY | 2024-05-30 14:20 | External Medical Summary | Summary of Care ---
Author Name Unknown Organization [facility] Address [address] [place] [address] Phone [phone] Care Team Providers Care Television Announcer Name Role Phone Kathia Duran Primary Care Provide r Reason for Visit * Reason Comments Back Pain * Auth/Cert Specialty Diagnoses / Procedures Referred By Contac t Referred To [facility] [address] [place] [address] Phone: [phone] Emergency Medicine [facility] [address] [place] [address] Referral ID Status Reason Start Date Expiration Date Visits Re quested Visits Authorized [id number] Encounter Details Date Type Department Care Team (Late st Contact Info) Description 12/13/2023 2:21 PM EDT - 12/13/2023 5:13 PM EDT Emergency [facility] Emergency Department ([facility]) [address] [place], [place] [phone] Mike Hernandez MD [address] [place], [place] [id number] Acute midline low back pain with bilateral sciatica (Primary Dx) Discharge Disposition: Home - Self Care Allergies Active Allergy Reactions Criticality Noted Date Comments Morphine And Codeine 03/09/2006 Hives Vancomycin 03/09/2006 Hives documented as of this encounter (statuses as of 12/14/2023) Medications Medication Sig Dispensed Refills Start Date End Date Status Ventolin HFA 108 (90 Base) MCG/ACT Inhalation Aerosol SolutionIndications :Exacerbation of asthma, unspecified asthma severity, unspecified whether persistent Inhale by mouth 2 Puffs every 4 hours as needed for Wheezing. 18 g 3 01/09/2022 Active Erythromycin 5 MG/GM Ophthalmic OintmentIndications :[place] eye disease of left eye Instill into [...] as of this encounter (statuses as of 12/14/2023) Active Problems Problem Noted Date Diagnosed Date RITCHIE (obstructive sleep apnea) 12/05/2021 documented as of this encounter (statuses as of 12/14/2023) Immunizations Name Administration Dates Next Due COVID-19 mRNA, LNP-s, No Pre serve, 2-Dose Series (Glaxstar) 03/19/2021,08/03/2020,07/12/2020 Pneumococcal Conjugate Vacci ne, 20-valent (Cwfyrmq84) 01/21/2022 Seasonal Influenza, PF, 6 M & [...] Sign Reading Time Taken Comments Blood Pressure 125/69 12/13/2023 4:27 PM EDT Pulse 69 12/13/2023 4:27 PM EDT Temperature 36.4 C (97.5 F) 12/13/2023 2:22 PM ED T Respiratory Rate 20 12/13/2023 4:27 PM EDT Oxygen Saturation 98% 12/13/2023 2:22 PM EDT Inhaled Oxygen Concentration - - Weight 97.5 kg (215 lb) 12/13/2023 2:22 PM EDT Height 172.7 cm (5' 8") 12/13/2023 2:22 PM EDT Body Mass Index 32.69 12/13/2023 2:22 PM EDT documented in this encounter Discharge Instructions * Discharge Instructions* Mike Hernandez MD - 12/13/2023 5:01 PM EDT Return to the emergency department with worsening back pain, difficulty controlling your bowel or bladder function, groin numbness. Do not lift anything greater than 10 lbs Please follow-up with a physical therapist. Please take ibuprofen and Tylenol at home. Please return to this Emergency Department or seek emergent care if your symptoms change, worsen significantly, or concern you in any way. Concerning symptoms that would require re-evaluation include, but are not necessarily limited to: - Fevers or shaking chills - Chest pain or difficulty breathing - Severe headache, numbness or tingling, or confusion - Persistent vomiting, severe abdominal pain, abdominal bloating, or bloody bowel movements - Inability to urinate or if your urine is significantly decreased Let us know if you have any questions regarding these instructions or the care you received here before leaving the Emergency Department. Please read the attached pamphlet for more information about your diagnosis and treatment. documented in this encounter ED Notes * Quynh Rouse RN - 12/13/2023 2:19 PM EDT Was heavy lifting on 12/10. 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 Reports his backis locked up and he has pain going into his BLE. Was seen at PCP Wednesday and Wednesday, given torodol shot and prednisone shot. Prescribed meloxicam and flexeril. Reports he hasn't been taking the meloxicam because he misunderstood the provider. States the flexeril is not helping documented in this encounter Plan of Treatment [...] as of this encounter Visit Diagnoses Diagnosis Acute midline low back pain with bilateral sciatica- Primary documented in this encounter Administered Medications Inactive Administered Medications - up to 3 most recent administrations Medication Order MAR Action Action Date Dose Rate Site Acetaminophen (Tylenol) tab 975 mg 975 mg, Oral, ONCE, On 12/13/23 at 1530, For 1 dose, Maximum of 4 grams (4000 mg) per day. Given 12/13/2023 3:56 PM EDT 975 mg keTORolac (Toradol) 30 MG/ML inj 15 mg 15 mg, Intramuscular, ONCE, On Wed12/13/23 at 1530, For 1 dose Given 12/13/2023 3:57 PM EDT 15 mg Deltoid Right Upper Lidocaine (Aspercreme) 4 % patch 1 Patch 1 Patch, Transdermal, ONCE, On Wed12/13/23 at 1530, For 1 dose, Apply patch for 12 hours then remove for 12 hours! Remove any Lidocaine patches the patient may currently be wearing prior to applying the new patch Patch Applied 12/13/2023 3:59 PM EDT 1 Patch Back Middle oxyCODONE (Oxy IR) tab 5 mg 5 mg, Oral, ONCE, On Wed12/13/23 at 1530, For 1 dose Given 12/13/2023 3:56 PM EDT 5 mg documented in this encounter Active and Recently Administered Medications Times are shown in EDT. Scheduled Medication Order 12/11/2023 12/12/2023 12/13/2023 Acetaminophen (Tylenol) tab 975 mg (COMPLETED) 975 mg, Oral, ONCE, On Wed12/13/23 at 1530, For 1 dose, Maximum of 4 grams (4000 mg) per day. 1556 (Given - Provid er: Tristen Das RN) keTORolac (Toradol) 30 MG/ML inj 15 mg (COMPLETED) 15 mg, Intramuscular, ONCE, On Wed12/13/23 at 1530, For 1 dose 1557 (Given - Provid er: Tristen Das RN) Lidocaine (Aspercreme) 4 % patch 1 Patch 1 Patch, Transdermal, ONCE, On Wed12/13/23 at 1530, For 1 dose, Apply patch for 12 hours then remove for 12 hours! Remove any Lidocaine patches the patient may currently be wearing prior to applying the new patch 1559 (Patch Applied - Provider: Tristen Das RN)1713 (Due: Patch Removed - Provider: Discharge, Physician - Comment: Time automatically adjusted from order being discontinued) oxyCODONE (Oxy IR) tab 5 mg (COMPLETED) 5 mg, Oral, ONCE, On Wed12/13/23 at 1530, For 1 dose 1556 (Given - Provid er: Tristen Das RN) documented in this encounter Care Teams Television Announcer Relationship Specialty Start Date End Date Kathia Duran CRNP [address] [facility] [place] [id number] PCP - General Nurse Practitioner 06/10/22 documented as of this encounter
--- OUTSIDE RECORDS SUMMARY | 2024-05-30 14:20 | External Medical Summary | Continuity of Care Document ---
Author Name Unknown Organization [facility] Address [address], [place] [address] Phone [phone] Problems Active Problems Provider Date Obstructive sleep apnea syndrome Ezekiel Cruz Onset: 01/26/2022 Mild intermittent asthma Deonna Webster PA-C On set: 03/05/2022 Social History Type Date Description Comments Sex Unknown Tobacco Use Reviewed: 07/28/23 Never Smoked Cigarette s Tobacco Use Reviewed: 07/28/23 Never Smoked Cigars Tobacco Use Reviewed: 07/28/23 Never Smoked A Pipe Smoking Status Reviewed: 12/08/23 Never Smoked A Pipe Smokeless Tobacco 07/28/2023 Current Smokel ess Tobacco User, Uses Occasionally 1 Can per Day ETOH Use Occasionally consumes alcoho l Tobacco Use Start: Unknown Patient has never smoked Allergies and adverse reactions Active Allergies Criticality Reaction | Severity Comments Date Morphine Unable to assess criticality Hives 01/26/2022 Vancomycin Unable to assess criticality Hives 01/26/2022 Medications Active Medications SIG Qnty Indications Order ing Provider Date [id number] Tablets 1 by mouth every day for 14 days 14tabs M54.50 Oralia Obrien MD 12/08/2023 Ihxxutynh14mb Tablets 1 by mouth every day M54.50 Minerva Young MD 12/08/2023 NebulizerMisc with supplies - use as directed; dx j45.901 1units J45.901 CICI Santiago 11/04/2022 Ipratropium [place]/Albuterol Sulfate0.5-2.5(3)mg/3ML Solution nebulize 1 unit every 6 hours as needed for wheezing. 90ml J45.901 Baldemar Oh DO 11/04/2022 Cyclobenzaprine JIW89qa Tablets take 1 tablet by mouth every 8 hours as needed for muscle spasms 20tabs M54.50 Oralia Obrien MD 03/05/2022 Ventolin [id number](90Base) mcg/Act Aerosol 2 puffs by mouth every 4 hours as needed wheezing 1gm CICI Santiago Medications Administered in Office Medication SIG Qnty Indications Ordering Provider Date Injection Methylprednisolone Acetate 20 MGInjection Marzena Abraham PA-C 05/27/2023 Immunizations CPT Code Status Date Vaccine Lot # [id number] Given 03/05/2022 Tdap (Tetanus, diphtheria & acel. pertussis) Adacel or Boostrix [id number] U-FLU Given 01/21/2022 Influenza,Unspecified 65025 Given 01/21/2022 Pneumococcal Conjugate-Pr evnar 20 [id number] Given 03/19/2021 Pfizer Sars-Cov -2 (Cov-19) vacc 30mcg/0.3ML 12Y+ EMR Doc Only U-FLU Given 02/14/2021 Influenza,Unspecified 22555 Given 08/03/2020 Pfizer Sars-Cov -2 (Cov-19) vacc 30mcg/0.3ML 12Y+ EMR Doc Only [id number] Given 07/12/2020 Pfizer Sars-Cov -2 (Cov-19) vacc 30mcg/0.3ML 12Y+ EMR Doc Only U-FLU Given 01/17/2018 Influenza,Unspecified 33249 Given 12/18/2009 Tdap (Tetanus, diphtheria & acel. pertussis) Adacel or Boostrix 38938 Given 01/12/2004 Td (Tetanus & Diphtheria) Tenivac [id number] Refused 03/05/2022 Moderna Sars-Co v-2 (Covid-19) Vaccine, BiValent Booster 12y+ Vital Signs Date Vital Result Comment 12/08/2023 1:05pm BP Systolic 130 mmHg BP Diastolic 70 mmHg Body Temperature 98.2 F Heart Rate 72 /min Respiratory Rate 16 /min Weight 216.00 lb Weight 97.978 kg 07/28/2023 6:26pm BP Systolic 132 mmHg BP Diastolic 70 mmHg Body Temperature 98.0 F Heart Rate 80 /min Respiratory Rate 16 /min Weight 219.25 lb Weight 99.452 kg Procedures Date Code Description Status 07/28/2023 13245 Remove Impact Cerumen Irriga tion Completed Medical Devices Description No Information Available Encounters Type Date Location Provider Dx Diagnosis Office Visit 12/08/2023 1:00p Hiro Young MD M54.50 Low back pain, unspecified Office Visit 07/28/2023 6:15p CICI Jama H61.23 Impacted cerumen, bilateral Assessments Date Code Description Provider 12/08/2023 M54.50 Low back pain, unspecified M ramón Young MD 07/28/2023 H61.23 Impacted cerumen, bilateral CICI Santiago Plan of Treatment 12/08/2023 - Minerva Young MD* M54.50 Low back pain, unspecified* New Medication:* Meloxicam 15 mg - 1 by mouth every day for 14 days * Meloxicam 15 mg - 1 by mouth every day * Comments:* Overview: A 43-year-old gentleman presents today with 3-qlh-nvhpnnl of lower back pain which started suddenly during wall painting. Pain radiating B/L buttocks and posterior thighs and legs. Mild on sitting, but severity; 9, at walking interfering with sleep, daily activities and walking. No neurology defect signs of symptoms. No fever, drug use Hx or relevant PMHx. DDx: Lumbosacral strain. Degenerative disease Lumbosacral vertebra fracture. Ordered X-ray to r/o fracture. Advised on using Meloxicam 15 mg daily for 14 days, flexeril as needed. Follow up urgently id developed numbness, weakness or worsening pain. Functional Status Description No Information Available Mental Status Description No Information Available Referrals Description No Information Available"
--- OUTSIDE RECORDS SUMMARY | 2024-05-30 14:20 | External Medical Summary | Summary of Care ---
Author Name Unknown Organization [facility] Address [address] [place] [address] Phone [phone] Care Team Providers Care Mixer And Scaler Name Role Phone Kathia Duran Primary Care Provide r Encounter Details Date Type Department Care Team (Late st Contact Info) Description 12/08/2023 Orders Only Radiology, [facility] [address] [place] [address] Requisition, External Radiology [address] [place] [address] Low back pain, unspecified* Allergies Active Allergy Reactions Criticality Noted Date Comments Morphine And Codeine 03/09/2006 Hives Vancomycin 03/09/2006 Hives documented as of this encounter (statuses as of 12/08/2023) Medications Medication Sig Dispensed Refills Start Date End Date Status Ventolin HFA 108 (90 Base) MCG/ACT Inhalation Aerosol SolutionIndications: Exacerbation of asthma, unspecified asthma severity, unspecified whether persistent Inhale by mouth 2 Puffs every 4 hours as needed for Wheezing. 18 g 3 01/09/2022 Active Erythromycin 5 MG/GM Ophthalmic OintmentIndications: [place] eye disease of left eye Instill into eye at bedtime . 3.5 g 01/09/2022 Active Additional Information Patient not taking.Reported on 01/21/2022 documented as of this encounter (statuses as of 12/08/2023) Active Problems Problem Noted Date Diagnosed Date RITCHIE (obstructive sleep apnea) 12/05/2021 documented as of this encounter (statuses as of 12/08/2023) Immunizations Name Administration Dates Next Due COVID-19 mRNA, LNP-s, No Pre serve, 2-Dose Series (Pfizer) 03/19/2021,08/03/2020,07/12/2020 Pneumococcal Conjugate Vacci ne, 20-valent ([id number]) 01/21/2022 Seasonal Influenza, PF, 6 M & [...] as of this encounter Plan of Treatment Pending Results Name Type Priority Associated Diagnoses Date /Time XR L SPINE AP AND LATERAL Medical Imaging STAT Low back pain, unspecified 12/08/2023 3:02 PM EDT Health Maintenance Due Date Last Done Comments HIV Screening 06/07/1995 Hepatitis C Screening 1998 Hepatitis B Vaccine (1 of 3 - 19+ 3-dose series) 06/07/1999 Depression Screening 07/30/2018 07/30/2017 DTap/Tdap Vaccines (2 - Td or Tdap) 12/19/2019 12/18/2009, 01/12/2004 COVID-19 Vaccine (2022- season) 2023 03/19/2021, 08/03/2020, 07/12/2020 Influenza Vaccine (FLU shot) (#1) 2023 01/21/2022, 02/14/2021, 01/17/2018 Lipid Panel 05/23/2027 05/23/2022, 03/30, 06/18/2017, Additional [...] as of this encounter Visit Diagnoses Diagnosis Low back pain, unspecified- Primary documented in this encounter Care Teams Mixer And Scaler Relationship Specialty Start Date End Date Kathia Duran CRNP [facility] [place] [id number] PCP - General Nurse Practitioner 06/10/22 documented as of this encounter
--- OUTSIDE RECORDS SUMMARY | 2024-05-30 14:20 | External Medical Summary | Continuity of Care Document ---
Author Name Unknown Organization [facility] Address [address], [place] [address] Phone [phone] Problems Active Problems Provider Date Obstructive sleep [...] SIG Qnty Indications Order ing Provider Date [id number] Tablets 1 by mouth every day for 14 days 14tabs M54.50 Oralia Obrien MD 12/08/2023 Yiimlztxo14ct Tablets 1 by mouth every day M54.50 Minerva Young MD 12/08/2023 NebulizerMisc with supplies - use as directed; dx j45.901 1units J45.901 CICI Santiago 11/04/2022 Ipratropium [place]/Albuterol Sulfate0.5-2.5(3)mg/3ML Solution nebulize 1 unit every 6 hours as needed for wheezing. 90ml J45.901 Baldemar Oh DO 11/04/2022 Cyclobenzaprine FAS32db Tablets take 1 tablet by mouth every 8 hours as needed for muscle spasms 20tabs M54.50 Oralia Obrien MD 03/05/2022 Ventolin GIM526(90Base) mcg/Act Aerosol 2 puffs by mouth every 4 hours as needed wheezing 1gm CICI Santiago Medications Administered in Office Medication SIG Qnty Indications Ordering Provider Date Injection Methylprednisolone Acetate 20 MGInjection Marzena Abraham PA-C 05/27/2023 Immunizations CPT Code Status Date Vaccine Lot # [id number] Given 03/05/2022 Tdap (Tetanus, diphtheria & acel. pertussis) Adacel or Boostrix [id number] U-FLU Given 01/21/2022 Influenza,Unspecified 28428 Given 01/21/2022 Pneumococcal Conjugate-Pr evnar 20 [id number] 03683 Given 03/19/2021 Pfizer Sars-Cov -2 (Cov-19) vacc 30mcg/0.3ML 12Y+ EMR Doc Only U-FLU Given 02/14/2021 Influenza,Unspecified 64513 Given 08/03/2020 Pfizer Sars-Cov -2 (Cov-19) vacc 30mcg/0.3ML 12Y+ EMR Doc Only [id number] Given 07/12/2020 Pfizer Sars-Cov -2 (Cov-19) vacc 30mcg/0.3ML 12Y+ EMR Doc Only U-FLU Given 01/17/2018 Influenza,Unspecified 85581 Given 12/18/2009 Tdap (Tetanus, diphtheria & acel. pertussis) Adacel or Boostrix 10781 Given 01/12/2004 Td (Tetanus & Diphtheria) Tenivac 04177 Refused 03/05/2022 Moderna Sars-Co v-2 (Covid-19) Vaccine, [...] kg Procedures Date Code Description Status 07/28/2023 12940 Remove Impact Cerumen Irriga tion Completed Medical [...] Overview: A 43-year-old gentleman presents today with 8-fgp-ktbtooi of lower back pain which started suddenly [...]
[2024-05-30] MEDS: FLOSEAL HEMOSTATIC MATRIX 10ML TOP ONE (14:42)
--- NOTE | 2024-05-30 14:56 | Operative Report ---
Post Operative Report Pre & Post Diagnosis Operation Date: 05/30/24 11:25 Pre-Op Diagnosis: #1 lumbar spondylosis with radiculopathy #2 lumbar spinal stenosis with radiculopathy #3 lumbar disc herniation with radiculopathy Post-Op Diagnosis: Same I identified the patient and participated in the time-out.: Yes Procedure Operation Date: 05/30/24 11:25 Actual Procedures #1 lumbar decompression with bilateral medial facetectomies and foraminotomies L2-L3, L3-L4, L4-5 and L5-S1. #2 posterior spinal fusion L3-S1. #3 placement posterior segmental instrumentation using Guardado L3-S1. #4 interbody fusion L3- L4, L4-5 L5-S1. #5 placement of Spira 14 x 26 mm at L3-L4, 16 x 26 mm x 2 at L4-5 and 15 x 26 mm x 2 at L5-S1. #6 placement locally harvested morselized autograft posterior gutters. #7 placement infuse collagen sponge, with Koros in the posterior lateral gutters and os design and interbody space. #8 application of versa wrap of the exposed dura. Surgeon Nicola Oneal, DO Digital Advisor Mel Soni Estimated Blood Loss 950 Findings See Below The patient is 5 foot 8 weighing over 103 kg with a BMI in excess of 34. The patient's body was did contribute to significant technical difficulty with positioning exposure and the procedure itself. This at least 50% increased operative time. Specimens None Indications This is a 43-year-old male presents publish diagnosis of failing course of nonoperative care is here for surgical invention. Description of Procedure Patient was met with identified informed consent obtained. Patient was then taken to the operative suite underwent ablation placed in a prone position on the Jameel table on top of the Timoteo frame. All bony prominences well-padded eyes inspected to ensure no external pressure placed upon them. This point the lumbar spine was prepped and draped in normal sterile fashion. Sharp dissection with the assistance of Bovie cautery performed down to and exposing the lamina transverse processes of L3-L4-L5 and the sacral ala bilaterally. A [place] fashion complete laminectomy of L5 was performed including bilateral medial facetectomies and foraminotomies addressing all neural compression. Then performed a complete laminectomy of L4 and again performing bilateral medial f acetectomies and foraminotomies addressing all neural compression followed by complete laminectomy of L3 with bilateral medial facetectomies and foraminotomies as well as excision of herniated fragment of disc. Lastly partial laminectomy of L2 with bilateral medial facetectomies address all subarticular stenosis. Pedicle screws then placed at L3-L4-L5 and S1 levels bilaterally with assistance of fluoroscopy and proper size matthew placed. By way of transfer approach on the right discectomy of L5-S1 was performed endplates corrected to subcortical bleeding bone and a 15 x 26 mm Spira cage filled with os designed tapped in position. Then proceeded to the left transforaminal region at L5-S1. Again by way of transforaminal approach discectomy performed endplates guided to subcortical bleeding bone and a second 15 x 26 mm Spira cage filled with os designed tapped in position. Then proceeded to L4-[address] of transfer approach on the left discectomy performed. Endplates guided to subcortical bleeding bone and a 16 x 26 mm Spira cage filled with os designed tapped in position. Then proceeded to the right transforaminal region at L4-5. Again discectomy performed. Endplates guided to subcortical bleeding bone and a second 16 x 26 mm Spira cage filled with Oxyzyme tapped in position. I then approached L3-L4. By way to transfer approach right a complete discectomy was performed. Endplates guided to subcortical bleeding bone and a 14 x 26 mm Spira cage filled with os design bone graft tapped in position. Rods were then compressed locked in final position. The transverse processes of L3 L4-5 and the sacral ala burred to subcortical bleeding bone. Infuse collagen sponge, with Koros and local autograft placed in the posterior gutters. Versa wrap placed over the exposed dura. 15 round RAYMOND drain inserted. The incision was then closed with 1 Vicryl the fascia 2-0 Vicryl subcutaneously and 4 Monocryl for final skin closure. Steri-Strips sterile dressing placed. Patient waken taken PACU stable condition. Please note spinal cord monitoring was utilized at the procedure no changes noted. Lastly Mel Soni was present out the entire procedure involved the patient positioning complex portion of the surgery and final skin closure. I attest to the content of the Intraoperative Record and any orders documented therein. Any exceptions are noted below.
--- NOTE | 2024-05-30 14:57 | Fluoroscopy Report ---
FL lumbar spine 2-3V CLINICAL HISTORY: L3-S1 DECOMPRESSION AND FUSION COMPARISON STUDY: None FLUOROSCOPY TIME: 31 seconds FLUOROSCOPY IMAGES: 3 EXPOSURE DOSE: 27 mGy FINDINGS: Fluoroscopy was provided for lumbar decompression and metallic fusion. IMPRESSION: Intraoperative fluoroscopy. ACT 112: Negative or not required by law. Electronically signed by: Mike Bradley M.D. 05/30/2024 2:56 PM
--- NOTE | 2024-05-30 15:38 | Anesthesiology Progress Note ---
Date of Service May 30, 2024 Anesthesia Post Procedure Vital Signs Vital Signs: Temp Pulse Pulse Resp BP BP Pulse Ox 05/30/24 15:35 95 H 14 123/81 95 05/30/24 15:25 90 14 129/94 98 05/30/24 15:15 89 12 140/93 98 05/30/24 15:07 36.3 C L 90 12 143/94 H 98 05/30/24 10:01 36.8 C 74 20 154/91 H 97 O2 Del Method O2 Flow Rate 05/30/24 15:35 Room Air 05/30/24 15:25 Oxymask 5 05/30/24 15:15 Oxymask 5 05/30/24 15:07 Oxymask 5 05/30/24 10:01 Room Air Pain Intensity Left Lower Back: Pain Intensity: 6 Back: Pain Intensity: 4 Transfer of Care Handoff Completed per policy Notes Mental Status: alert / awake / arousable Patient Amnestic to Procedure: Yes Nausea / Vomiting: adequately controlled Pain: adequately controlled Airway Patency, RR, SpO2: stable & adequate BP & HR: stable & adequate Hydration State: stable & adequate Anesthetic Complications: no major complications apparent and Pt Satisfied with anesthetic care
[2024-05-30] MEDS ORDERED: ACETAMINOPHEN 1,000 MG/100 ML VIAL IV PRN (16:21)
[2024-05-30] MEDS ORDERED: FAMOTIDINE 20 MG TAB PO PRN (16:21)
[2024-05-30] MEDS ORDERED: LORazepam 2 MG/1 ML VIAL IV PRN (16:21)
[2024-05-30] MEDS ORDERED: NALOXONE HCL 0.4 MG/1 ML VIAL/CARP IV PRN (16:21)
[2024-05-30] MEDS ORDERED: hydrOXYzine HCl 25 MG TAB PO PRN (16:21)
[2024-05-30] MEDS ORDERED: ALUMINUM/MAGNESIUM SUSP 30 ML UDC PO PRN (16:21)
[2024-05-30] MEDS ORDERED: MAGNESIUM HYDROXIDE SUSP 30 ML UDC PO PRN (16:21)
[2024-05-30] MEDS ORDERED: diphenhydrAMINE Capsule 25 MG CAP PO PRN (16:21)
[2024-05-30] MEDS ORDERED: PROMETHAZINE 12.5 MG/50.5 ML BAG IV PRN (16:21)
[2024-05-30] MEDS ORDERED: METOCLOPRAMIDE HCL INJ 5 MG/ML 2 ML VIAL IV PRN (16:21)
[2024-05-30] MEDS ORDERED: DO NOT ADMINISTER PNEUMOCOCCAL VACCINE PRN (16:21)
[2024-05-30] MEDS ORDERED: bisacodyL 10 MG SUPP PR PRN (16:21)
[2024-05-30] MEDS ORDERED: SOD PHOSPHATE/SOD BIPHOSPHATE ENEMA 132 ML BTL PR PRN (16:21)
[2024-05-30] MEDS ORDERED: ONDANSETRON 4 MG OD TAB PO PRN (16:21)
[2024-05-30] MEDS ORDERED: DO NOT ADMINISTER FLU VACCINE PRN (16:21)
[2024-05-30] MEDS ORDERED: LORazepam 0.5 MG TAB PO PRN (16:21)
[2024-05-30] MEDS ORDERED: ALBUTEROL HFA 8 GM INHALER INH PRN (16:25)
[2024-05-30] MEDS: CHECK SCOPOLAMINE PATCH PLACEMENT SCH (16:40)
[2024-05-30] MEDS: oxyCODONE HCL IR 5 MG TAB (IMMEDIATE RELEASE) PO PRN (18:49)
[2024-05-30] MEDS: GABAPENTIN 300 MG CAP PO SCH (20:55)
[2024-05-30] MEDS: DOCUSATE SODIUM/SENNA 50/8.6MG TAB PO SCH (20:55)
[2024-05-30] MEDS: tiZANidine HCL 4 MG TABLET PO PRN (23:10)
[2024-05-31] MEDS: POLYETHYLENE (MIRALAX) 17 GM PACK PO SCH (05:14)
[2024-05-31] MEDS: HYDROmorphone INJ 0.5 MG/0.5 ML SYR IV PRN (06:13)
[2024-05-31 07:23] LABS: Basophils # (auto) 0.02 K/uL (0.00-0.20); Basophils % (auto) 0.1 %; Hematocrit (blood only) 37.7 % (42.0-52.0); Immature Granulocytes # (auto) 0.09 K/uL (0.01-0.20); Immature Granulocytes % (auto) 0.6 %; Lymphocytes # (auto) 1.65 K/uL (1.20-3.40); Lymphocytes % (auto) 10.8 %; Mean Corpuscular Hemoglobin 29.5 pg (25.0-34.0); Mean Corpuscular Hgb Conc 34.5 g/dL (32.0-36.0); Mean Corpuscular Volume 85.7 fL (80.0-100.0); Mean Platelet Volume 9.3 fL (9.4-12.4); Monocytes # (auto) 1.57 K/uL (0.11-0.59); Monocytes % (auto) 10.3 %; Neutrophils # (auto) 11.91 K/uL (1.40-6.50); Neutrophils % (auto) 78.2 %; Platelet Count 260 K/uL (130-400); RDW Coefficient of Variation 12.8 % (11.5-14.5); White Blood Count 15.24 K/ul (4.8-10.8)
[2024-05-31 07:40] LABS: BUN Creatinine Ratio 18.3 (10-20); Calcium 8.6 mg/dl (8.6-10.3); Potassium 4.2 mmol/L (3.5-5.1)
[2024-05-31] MEDS: dexAMETHasone 6 MG in SYRINGE 0 ML IV SCH (09:32)
--- NOTE | 2024-05-31 12:12 | Orthopedic Progress Note ---
Date of Service May 31, 2024 Assessment & Plan (1) Multilevel lumbosacral spondylosis with radiculopathy: Plan: At this time we will continue physical therapy monitor his RAYMOND operatively discharge home the next few days. Admission and Anticipated Discharge Date Admission Date: May 30, 2024 Subjective Patient's back pain is controlled leg symptoms improved Physical Exam Physical Exam: Patient is currently in bed. Is constricted testing. Appears comfortable. Results & Data Vital Signs (Past 12 Hours) Vital Signs Temp Pulse Pulse Pulse Resp BP BP 05/31/24 11:51 36.6 C 82 20 112/74 05/31/24 07:44 36.6 C 90 20 116/76 05/31/24 03:40 91 H 16 05/31/24 03:11 37.5 C 86 18 143/81 H Pulse Ox O2 Del Method 05/31/24 11:51 96 Room Air 05/31/24 07:44 95 Room Air 05/31/24 03:40 90 05/31/24 03:11 92 Room Air Queries Orthopedic Spine Obesity: Yes
[2024-05-31] MEDS: traMADol HCL 50 MG TABLET PO PRN (12:59)
--- NOTE | 2024-06-01 08:33 | Orthopedic Progress Note ---
Date of Service June 01, 2024 Assessment & Plan (1) Multilevel lumbosacral spondylosis with radiculopathy: Plan: Eamon is postoperative day 2 status post L3-S1 decompression and fusion. Will maintain RAYMOND drain. Continue with ambulation and physical therapy today. Continue with pain control. DVT prophylaxis is in the form teds and SCDs. Anticipate discharge home tomorrow Admission and Anticipated Discharge Date Admission Date: May 30, 2024 Subjective Eamon is postoperative day 2 status post L3-S1 decompression and fusion. He is doing well. Has some back pain and some left lower extremity paresthesias. He is passing flatus but no bowel movement. RAYMOND drain output last shift was 20 cc. Yesterday in physical therapy Amling about 105 feet. He was also ambulating the hallways early this morning. Review of Systems Review of Systems: All systems reviewed & are unremarkable except as noted in HPI & below Physical Exam Physical Exam: He is sitting up in bed eating breakfast in no acute distress Alert and oriented x 3 Lumbar dressing is clean dry and intact with functioning RAYMOND drain Strength intact bilateral lower extremities VILMA hose intact bilateral lower extremities Results & Data Vital Signs (Past 12 Hours) Vital Signs Temp Pulse Pulse Resp BP Pulse Ox O2 Del Method 06/01/24 07:30 36.4 C L 83 18 120/72 96 Room Air 05/31/24 22:18 83 19 93 Queries Orthopedic Spine Obesity: Yes
[2024-06-02] MEDS: ACETAMINOPHEN 500 MG TAB PO PRN (00:07)
[2024-06-02 07:48] VITALS: BP 135/82; PULSE 73; RESP 16; TEMP 97.5; O2SAT 98
--- NOTE | 2024-06-02 10:12 | Discharge Summary ---
Date of Service June 02, 2024 Admission HPI Per Admitting Provider This is a 43-year-old male presents with worsening back and bilateral leg pain after failing course of nonoperative care is here for surgical invention. Principal Diagnosis Lumbar spondylosis with radiculopathy Discharge Data Allergies Allergy/AdvReac Type Severity Reaction Status Date / Time morphine Allergy Severe Hives Verified 05/30/24 09:58 vancomycin Allergy Severe Hives Verified 05/30/24 09:58 Procedures Performed Operation Date: 05/30/24 11:25 Actual Procedures p L3-S1 Decompression and Fusion, Spinal Cord Monitoring(Not Applicable) - Nicola Oneal DO Ordered Studies 05/30/24 11:25 FL lumbar spine 2-3V Routine Hospital Course (1) Multilevel lumbosacral spondylosis with radiculopathy: Patient with lumbar decompression fusion tolerates was taken to orthopedic for postoperative. Postop he progressed appropriately. RAYMOND drain decreasing. Pain controlled. Good strength testing. Subsidy discharged home. Discharge orders instructions from the chart for further review. Total Time Total Time Spent Total Time Spent (In Minutes): 20 minutes Discharge Plan Discharge Items Patient Disposition: Home - Self-Care Reason For Visit: Lumbosacral Spondylosis with Radiculopathy, Congen Discharge Diagnosis: Lumbar spondylosis with radiculopathy Activity: As commented below Non-emergency contact: Primary Care Provider Call non-emergency contact if: you have any medication questions Follow-up/Referrals: Marzena Abraham PA-C [Primary Care Provider] - Diet: Regular Addtl Attending Provider Instructions: ACTIVITY RECOMMENDATIONS: SELF CARE INSTRUCTIONS AFTER THORACIC/LUMBAR FUSIONS 1. You may walk to your tolerance. It is good exercise for your legs and back. Expect some back and intermittent leg aches and pains. 2. You may perform "counter-top" level activities (make a sandwich, carine with a project, etc.). 3. No bending or lifting of more than 10 pounds or back twisting of any nature (roll like a log when turning in bed). 4. You may ride in a car for 20-30 minutes at a time. No driving until after your first visit with your doctor. 5. Frequent changes of position and restricting sitting to 30 minutes at a time will help limit the amount of back spasms and stiffness you may experience. 6. You may discontinue the use of ambulatory aids (cane, crutches, etc.) once your strength and confidence allow. 7. You may machine heel builder the shower and let water strike your incision when you arrive home at least once daily. Do not take a tub bath, sit in a hot tub or go into a swimming pool until after your first recheck in the office. 8. You may resume previous diet. SPECIAL CARE INSTRUCTIONS: VERY IMPORTANT TO READ AND REVIEW A. Your surgical incision has been closed with a cosmetic suture under the skin that will dissolve in about 6 weeks. In 14 days, you can use a pair of clean scissors and cut the suture that is left outside of the skin at the ends of your incision. 1. The small skin tapes can be removed 7 days after surgery if they have not fallen off by that point. 2. You may keep the wound open to air as much as possible to promote healing after post-op day number 5 unless told otherwise by your doctor. 3. If you think the wound looks like it is becoming infected (redness or worsening drainage) and/or you are experiencing fever, chill or worsening back pain and muscle spasms, contact the office so that we may evaluate you as soon as possible. B. Complications are uncommon, but please contact us if you have any signs or symptoms of: 1. wound infection (fever higher than 102.5 degrees F, redness, separation of wound, drainage, or increasing pain from the incision) 2. blood clots in legs (pain, swelling, redness and warmth in legs) 3. urinary tract infection (fever higher than 102.5 degrees F, burning upon urination or increased frequency of urination) 4. nerve problems (inability to walk on your toes or heels, numbness, loss of bowel or bladder control) 5. any other symptoms that concern you C. Please call the office at if you have any concerns or questions about your operation or recovery. D. No smoking! Smoking drastically decreases the chance of a solid fusion. E. Do not take any anti-inflammatory medications (Indocin, Advil, Motrin, Aspirin, Naprosyn, etc.) as these may inhibit the chance of a solid fusion. Tylenol is okay to take for pain. MANAGING PAIN AFTER SPINAL SURGERY 1. Narcotic medication is intended for short-term use and will be provided for surgical pain. Surgical pain usually lasts for a period of 4-6 weeks. Narcotic medication includes Percocet, Vicodin, Darvocet, Tylenol #3 or Lortab. 2. Longer-term pain is more appropriately treated with non-narcotic medication such as Tylenol ES. 3. Muscle spasm is not appropriately treated with narcotics. Muscle relaxers such as Soma, Flexeril or Skelaxin can be used along with Tylenol ES. 4. Remember that we all live with some "aches and pains". This is not unusual or uncommon after an injury or as we get older. a. Back pain is expected and may include muscle spasms for 4 to 6 weeks after surgery. The pain should gradually improve. If the pain worsens for no apparent reason, please contact the office. b. Intermittent leg pain may also be experienced and should not be concerned about unless it worsens for no apparent reason. If so, please contact the office. 5. We will provide appropriate medication within the normal guidelines of their prescribed use. We will also be very cautious and aware of potential abuse and extended duration of patients' medication needs. a. Pain medications are for your comfort and to assist with sleep and rest so that the tissue can heal. They are not provided in order to return to normal activity and should not be used through the day. To do so or worsening pain at night can result from ongoing tissue damage and development of tolerance to the prescribed medicine. 6. Please allow 2-3 days to process refills. Prescriptions will not be mailed but must be picked up at the office. FOLLOW UP VISIT: Keep your scheduled follow-up appointment. Any questions, please call the office at . Pending Studies at Discharge: No Stand-Alone Forms: My [facility] GetOutfitted, Smoking Cessation Medications and DC Order Prescriptions: New tramadol 50 mg tablet 50 mg PO Q6H PRN (Reason: pain, moderate) Qty: 30 0RF oxycodone 5 mg tablet 5 mg PO Q6H PRN (Reason: pain) Qty: 30 0RF Continued tizanidine 4 mg Tablet 4 mg PO Q8H PRN (Reason: prn) hydrocodone-acetaminophen 5-325 mg Tablet 1 tab PO Q6H PRN (Reason: prn) acetaminophen [Tylenol Arthritis] 650 mg Tablet Extended Release 650 mg PO Q8H PRN (Reason: prn) gabapentin 300 mg Tablet 300 mg PO TID albuterol 90 mcg/actuation Aerosol 90 mcg INHALATION Q4H PRN (Reason: prn) Discontinued meloxicam 15 mg Tablet 15 mg PO QAM Discharge Orders: Discharge Order (Routine); Ordered 06/02/24 Ordered By: Nicola Oneal Admission Data Admit Date/Time: 05/30/24 15:03 Attending Provider: Nicola Oneal Admit Provider: Nicola Oneal Primary Care Provider: Marzena Abraham
== END 2024-06-02 13:16 | disposition home or self-care (01) ==
LOC: 3N 09:41 → ASU 09:41